=== PATIENT | female | born 1930 | race Caucasian/White ===

== ENCOUNTER 2018-09-19 13:30 | Inpatient (IN) | payer MEDICARE, BC ==
[2018-09-24] MEDS ORDERED: CEFAZOLIN 2 GM/50 ML BAG ONE (06:20)
[2018-09-24] MEDS ORDERED: Heparin 5,000 UNITS/ML VIAL ONE (06:32)
[2018-09-24] MEDS ORDERED: Protamine Sulfate 50 MG/5 ML VIAL ONE (06:32)
[2018-09-24] MEDS ORDERED: Fentanyl 100 MCG/2 ML VIAL ONE (06:49)
[2018-09-24] MEDS ORDERED: Phenylephrine HCL 10 MG/ML VIAL ONE (07:00)
[2018-09-24] MEDS ORDERED: Bupivacaine HCl 0.5%/Epinephrine 1:200,000/PF 30 ml Vial ONE (07:10)
[2018-09-24] MEDS ORDERED: hydrALAZINE 20 MG/ML VIAL ONE (09:02)
[2018-09-24] MEDS ORDERED: Insulin Regular 300 UNITS/3 ML VIAL SC PRN (10:50)
[2018-09-24] MEDS ORDERED: Ondansetron PF 4 MG/2 ML Vial IVP PRN (10:50)
[2018-09-24] MEDS ORDERED: Glimepiride 2 MG TAB PO SCH ×2 (10:50→14:30)
[2018-09-24] MEDS ORDERED: Sodium Chloride 0.9% 1,000 ML IV SCH (10:50)
[2018-09-24] MEDS ORDERED: traMADol HCl 50 MG TAB PO PRN (10:50)
[2018-09-24] MEDS ORDERED: Phenylephrine 10 MG/NS 250 ML 250 ML IVPB PRN (10:50)
[2018-09-24] MEDS ORDERED: Nitroglycerin 50 MG/250 ML BOT 250 ML IVPB PRN (10:50)
[2018-09-24] MEDS ORDERED: Acetaminophen 325 MG TAB PO PRN (10:50)
[2018-09-24] MEDS ORDERED: Promethazine HCl 25 MG/ML VIAL IM PRN (10:50)
[2018-09-24] MEDS ORDERED: Fentanyl 100 MCG/2 ML VIAL SLOW IVP PRN (10:50)
--- NOTE | 2018-09-24 11:43 | OP ---
DATE OF PROCEDURE: 09/24/2018 PREOPERATIVE DIAGNOSIS: Symptomatic right carotid stenosis. POSTOPERATIVE DIAGNOSIS: Symptomatic right carotid stenosis. PROCEDURE: Right carotid endarterectomy with bovine patch angioplasty. SURGEON: Tam Sweeney M.D. ANESTHESIA: General. ESTIMATED BLOOD LOSS: Less than 100. PROCEDURE IN DETAIL: After adequate anesthesia had been obtained, the patient was placed with a shoulder roll and head supported, an ultrasound was performed. The patient was prepped and draped. Incision was made and carried through the platysma. Sternocleidomastoid muscle was rotated laterally and common internal and external carotid arteries were isolated. Hypoglossal nerve was identified and the the arterial branch and passed through its crook was divided with clips, but the nerve otherwise not handled. Vagus nerve was not specifically identified. After 7500 units of heparin were given ACT levels were checked. Clamps were applied, arteriotomy performed, and a 12-Kyr[place] shunt was placed. Endarterectomy was then performed with nice tapering distally. The area was thoroughly irrigated and any loose debris removed. A bovine patch was then used to close the arteriotomy. Prior to completing the suture line the vessels were back flushed and forward flushed and the arteriotomy was again irrigated with normal saline. Flow was then restored up the external and then internal carotid artery and after obtaining good hemostasis and wound was irrigated and closed in layers. SUSY
[2018-09-24 12:45] VITALS: BMI 25.8
[2018-09-24] MEDS ORDERED: Losartan 25 MG TAB PO SCH (14:45)
[2018-09-24] MEDS: Losartan 25 MG TAB PO SCH (14:50)
[2018-09-24] MEDS: CEFAZOLIN 2 GM/50 ML BAG IVPB SCH ×2 (14:51→21:23)
[2018-09-24] MEDS ORDERED: Lidocaine 1% PF 5 ML VIAL ONE (15:08)
[2018-09-24] MEDS ORDERED: Ondansetron PF 4 MG/2 ML Vial ONE (15:08)
[2018-09-24] MEDS ORDERED: PROPOFOL 200 MG/20 ML VIAL ONE (15:08)
[2018-09-24] MEDS ORDERED: Glycopyrrolate 0.2 MG/ML 5 ML SYRINGE ONE (15:08)
[2018-09-24] MEDS ORDERED: Dexamethasone 20 MG/5 ML VIAL ONE (15:08)
[2018-09-24] MEDS ORDERED: ePHEDrine/0.9% NaCl/PF SYRINGE 50 mg/10 ml ONE (15:08)
[2018-09-24] MEDS ORDERED: Heparin 10,000 UNITS/ 10 ML VIAL ONE (15:08)
[2018-09-24] MEDS ORDERED: Atorvastatin Calcium 20 MG TAB PO SCH (21:00)
[2018-09-25] MEDS ORDERED: Levothyroxine Sodium 125 MCG TAB PO SCH (06:00)
[2018-09-25] MEDS ORDERED: Cepastat Lozenges 1 LOZ PO PRN (06:25)
[2018-09-25] MEDS: Losartan 25 MG TAB PO SCH (06:30)
[2018-09-25] MEDS: CEFAZOLIN 2 GM/50 ML BAG IVPB SCH (06:31)
--- NOTE | 2018-09-25 06:35 | DIS ---
HOSPITAL COURSE: The patient was admitted for elective right carotid endarterectomy for symptomatic stenosis. Her postoperative course was remarkable only for slight lip droop on the right and hyperte nsion, requiring IV nitroglycerin. She has some minimal swelling and bruising in the right neck othe rwise and is doing well in anticipation of discharge later today as her blood pressure comes under be tter control with her morning meds.
[2018-09-25 08:41] VITALS: TEMP 98.9
[2018-09-25] MEDS ORDERED: Glimepiride 2 MG TAB PO SCH (09:00)
[2018-09-25] MEDS ORDERED: Amlodipine 5 MG TAB PO PRN (09:00)
== END 2018-09-25 09:25 | disposition home or self-care (01) | DRG 39 ==
LOC: SURG A 09-24 05:53 → CCU 09-24 10:18
PROVIDERS: ADMIT Thoracic Surgery (Cardiothoracic Vascular Surgery); ATTEND Thoracic Surgery (Cardiothoracic Vascular Surgery)
PROC: 03CK0ZZ Extirpation of Matter from Right Internal Carotid Artery, Open Approach (ICD-10-PCS; principal; 2018-09-24)
PROC: 03CM0ZZ Extirpation of Matter from Right External Carotid Artery, Open Approach (ICD-10-PCS; 2018-09-24)
PROC: 03CH0ZZ Extirpation of Matter from Right Common Carotid Artery, Open Approach (ICD-10-PCS; 2018-09-24)
PROC: 03UM0KZ Supplement Right External Carotid Artery with Nonautologous Tissue Substitute, Open Approach (ICD-10-PCS; 2018-09-24)
DX: I65.23 Occlusion and stenosis of bilateral carotid arteries (principal); I10 Essential (primary) hypertension; J02.9 Acute pharyngitis, unspecified; R60.9 Edema, unspecified; E11.9 Type 2 diabetes mellitus without complications; M19.90 Unspecified osteoarthritis, unspecified site; Z85.828 Personal history of other malignant neoplasm of skin; E78.5 Hyperlipidemia, unspecified; Z86.73 Personal history of transient ischemic attack (TIA), and cerebral infarction without residual deficits; E03.9 Hypothyroidism, unspecified
CPT/HCPCS: 36416; J0360; J0670; J1100; J1642; J1644; J2001; J2370; J2405; J2704; J2720; J3010

== ENCOUNTER 2018-09-19 13:43 | Outpatient (CLI) | payer MEDICARE, BC ==
[2018-09-19 14:31] LABS: Hemoglobin 12.5 g/dL (12.0-16.0); Mean Corpuscular HGB CONC 33.3 g/dL (32.0-36.0); Mean Platelet Volume 6.9 fL (7.4-10.4); Platelet Count 238 thou/uL (130-400); RBC Distribution Width 13.6 % (11.5-14.5); Red Blood Cell (RBC) Count 4.02 mill/uL (4.20-5.40); White Blood Cell (WBC) Count 6.1 thou/uL (4.8-10.8)
[2018-09-19 14:49] LABS: Anion Gap 10 mmol/L (10-20); BUN (Urea Nitrogen) 19 mg/dL (9.8-20.1); Calc. Creatinine Clearance 0 mL/min (70-130); Calcium 9.1 mg/dL (7.8-10.44); Carbon Dioxide 26 mmol/L (23-31); Chloride 109 mmol/L (98-107); Estimated GFR-MDRD 43; Glucose 63 mg/dL (83-110); Potassium 4.4 mmol/L (3.5-5.1); Sodium 141 mmol/L (136-145)
--- NOTE | 2018-09-20 07:48 | EKG ---
Test Reason : Blood Pressure : / mmHG Vent. Rate : 052 BPM Atrial Rate : 052 BPM P-R Int : 174 ms QRS Dur : 094 ms QT Int : 518 ms P-R-T Axes : 070 095 020 degrees QTc Int : 481 ms Sinus bradycardia Rightward axis Incomplete right bundle branch block Nonspecific ST abnormality Abnormal ECG No previous ECGs available Confirmed by DR. Bria LUIS ([id number]) on 09/20/2018 7:48:01 AM Referred By: CARLA Confirmed By:DR. Bria LUIS
== END 2018-09-19 13:44 | disposition home or self-care (01) ==
LOC: LABBT 13:43
PROVIDERS: ATTEND Thoracic Surgery (Cardiothoracic Vascular Surgery)
DX: Z01.818 Encounter for other preprocedural examination (principal); G45.9 Transient cerebral ischemic attack, unspecified
CPT/HCPCS: 80048; 85027; 93005; 93010

== ENCOUNTER 2020-01-21 09:36 | Outpatient (CLI) | payer MEDICARE, BC ==
--- NOTE | 2020-01-21 10:24 | RAD ---
Right wrist 4 views: 01/21/2020 COMPARISON: None HISTORY: Fall, trauma, pain FINDINGS: There is chondrocalcinosis in the region of the triangular fibrocartilage complex. There is radiocarpal joint space narrowing. There is degenerative change in the region of the first carpometacarpal joint as well as the first an d second metacarpal phalangeal joints. No displaced fracture or evidence of dislocation is appreciated. If symptoms persist, follow-up in 7-10 days advised. IMPRESSION: Degenerative change. No acute fracture or dislocation seen.
--- NOTE | 2020-01-21 10:31 | RAD ---
XR Hip Lt 2-3 View History: M 25.552. Left hip Comparison: None Findings: Small femoral head/neck ring osteophytes. Mild vascular calcifications. Mild narrowing of the pubic symphysis and SI joints. Phleboliths in the left hemipelvis. Impression: No acute fracture or malalignment.
== END 2020-01-21 09:37 | disposition home or self-care (01) ==
LOC: SCSRAD 09:36
PROVIDERS: ATTEND Family Medicine
DX: M25.552 Pain in left hip (principal); M25.531 Pain in right wrist; M19.031 Primary osteoarthritis, right wrist

== ENCOUNTER 2020-02-18 11:00 | Outpatient (CLI) | payer MEDICARE, BC ==
--- NOTE | 2020-02-18 13:47 | CT ---
CT RIGHT UPPER EXTREMITY WITHOUT CONTRAST: 02/18/20 HISTORY: Wrist pain. Injury. COMPARISON: Radiographs of the wrist 01/21/20. FINDINGS: Radiographically occult intra-articular distal radius fracture. This is a somewhat complex fracture i ncluding a complete fracture of the radial styloid process through the scaphoid fossa laterally as we ll as an impacted fracture along the central aspect of the medial scaphoid fossa. There is also a fra cture of the dorsal cortex with 2 mm dorsal displacement. Chondrocalcinosis of the triangular fibrocartilage and scapholunate ligament. Advanced degenerative disease of the thumb carpometacarpal joint as well as thumb metacarpophalangea l joint. The tip of the hammate and the tubercle fusion are intact. The visualized metacarpals appear to be in tact. IMPRESSION: 1. Intra-articular distal radius fracture, slightly complex, involving both the radial styloid process as well as scaphoid fossa with dorsal impaction and minimal dorsal displacement. 2. 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 3. 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 4. 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 POS: HOME
== END 2020-02-18 11:01 | disposition home or self-care (01) ==
LOC: SCSCT 11:00
PROVIDERS: ATTEND Family Medicine
DX: M25.531 Pain in right wrist (principal); S52.511A Displaced fracture of right radial styloid process, initial encounter for closed fracture; M11.231 Other chondrocalcinosis, right wrist; M18.11 Unilateral primary osteoarthritis of first carpometacarpal joint, right hand; M67.833 Other specified disorders of tendon, right wrist

== ENCOUNTER 2020-03-30 10:44 | Outpatient (CLI) | payer MEDICARE, BC ==
--- NOTE | 2020-03-30 13:02 | RAD ---
THREE VIEWS RIGHT WRIST: COMPARISON: None. HISTORY: Closed fracture of the right wrist. COMPARISON: 01/21/2020. FINDINGS: Three views in the right wrist show no evidence of acute fracture or dislocation. There is mild narr owing of the radiocarpal joint. No soft tissue swelling is seen. Vascular calcifications are presen t. IMPRESSION: No evidence of right wrist fracture. POS: [facility]
== END 2020-03-30 10:45 | disposition home or self-care (01) ==
LOC: SCSRAD 10:44
PROVIDERS: ATTEND Family Medicine
DX: S62.101D Fracture of unspecified carpal bone, right wrist, subsequent encounter for fracture with routine healing (principal)

== ENCOUNTER 2020-04-19 10:42 | Inpatient (IN) | payer MEDICARE, BC, OTHER ==
[2020-04-19 11:19] LABS: #Eosinphils 0.1 thou/uL (0.0-0.7); #Lymphocytes 1.7 thou/uL (1.20-3.40); #Monocytes 0.5 thou/uL (0.11-0.59); #Neutrophils 5.8 thou/uL (1.40-6.50); %Basophils 0.3 % (0.0-1.0); %Eosinophils 1.6 % (0.0-10.0); %Monocytes 6.3 % (0.0-10.0); %Neutrophils 70.8 % (42.0-75.0); Hemoglobin 12.9 g/dL (12.0-16.0); Mean Corpuscular HGB CONC 33.7 g/dL (32.0-36.0); Mean Corpuscular Hemoglobin 32.4 pg (27.0-31.0); Mean Corpuscular Volume 96.2 fL (78.0-98.0); Mean Platelet Volume 7.7 fL (7.4-10.4); Platelet Count 267 thou/uL (130-400); RBC Distribution Width 13.9 % (11.5-14.5); Red Blood Cell (RBC) Count 3.98 mill/uL (4.20-5.40); White Blood Cell (WBC) Count 8.2 thou/uL (4.8-10.8)
[2020-04-19] MEDS ORDERED: Aspirin Chewable 81 MG TAB ONE (11:20)
[2020-04-19 11:31] LABS: ALT (SGPT) 32 U/L (8-55); AST (SGOT) 41 U/L (5-34); Albumin 4.1 g/dL (3.4-4.8); Alkaline Phosphatase 56 U/L (40-110); Anion Gap 15 mmol/L (10-20); BUN (Urea Nitrogen) 27 mg/dL (9.8-20.1); Bilirubin, Total 0.5 mg/dL (0.2-1.2); CK (CPK) 73 U/L (29-168); Calc. Creatinine Clearance 0 mL/min (70-130); Calcium 8.8 mg/dL (7.8-10.44); Carbon Dioxide 21 mmol/L (23-31); Chloride 107 mmol/L (98-107); Estimated GFR-MDRD 35; Globulin 2.6 g/dL (2.4-3.5); Glucose 121 mg/dL (83-110); Potassium 4.5 mmol/L (3.5-5.1); Protein, Total 6.7 g/dL (6.0-8.3); Sodium 138 mmol/L (136-145)
[2020-04-19 11:52] LABS: CKMB 2.1 ng/mL (0-6.6)
[2020-04-19] MEDS ORDERED: Enoxaparin Sodium 80 MG/0.8 ML SYRINGE ONE (12:31)
[2020-04-19] MEDS ORDERED: Diltiazem 125 MG in Sodium Chloride 0.9% 100 ML IVPB SCH (12:45)
[2020-04-19 13:01] LABS: Prothrombin Time 12.8 sec (12.0-14.7)
[2020-04-19 13:02] LABS: PTT 33.6 sec (22.9-36.1)
--- NOTE | 2020-04-19 13:13 | RAD ---
AP CHEST: History: Palpitations. FINDINGS: Lungs appear clear of infiltrate. Mild cardiomegaly. No evidence of vascular congestion or edema. No significant effusion. IMPRESSION: Cardiomegaly. No acute lung process. POS: [facility]
[2020-04-19 14:04] LABS: Bacteria/HPF None Seen HPF (None Seen); Bilirubin Negative (Negative); Blood, Urine Negative (Negative); Clarity Clear (Clear); Glucose, Urine (Dipstick) Normal (Negative); Leukocyte Negative Leu/uL (Negative); Nitrite Negative (Negative); Protein, Urine (Dipstick) 100 mg/dL (Neg-Trace); RBC/HPF None Seen HPF (0-3); Squamous Epithelial 0-3 HPF (0-3); Urobilinogen Normal mg/dL (Less than 2); WBC/HPF 0-3 HPF (0-3)
[2020-04-19 15:01] VITALS: BMI 24.8
[2020-04-19 15:10] LABS: Troponin I 0.044 ng/mL (< 0.028)
[2020-04-19] MEDS ORDERED: Ondansetron ODT 4 MG TAB SL PRN (15:37)
[2020-04-19] MEDS ORDERED: Ondansetron PF 4 MG/2 ML Vial IVP PRN (15:37)
[2020-04-19] MEDS ORDERED: Nitroglycerin 0.4 MG TAB (25 Tab Bottle) PO PRN (17:16)
[2020-04-19] MEDS ORDERED: Acetaminophen 325 MG TAB PO PRN (17:18)
[2020-04-19] MEDS ORDERED: Calcium Carbonate 500 MG ChewTAB PO PRN (17:18)
[2020-04-19] MEDS ORDERED: Insulin Regular 300 UNITS/3 ML VIAL SC PRN (17:25)
[2020-04-19] MEDS ORDERED: Dextrose 5% in Water 1,000 ML IV PRN (17:25)
[2020-04-19] MEDS ORDERED: Dextrose 50% Abboject 50 ML SYRINGE SLOW IVP PRN (17:25)
--- NOTE | 2020-04-19 17:55 | HP ---
PRIMARY CARE PHYSICIAN: Yosi Carballo MD PRIMARY RESIDENTIAL TEAM LEADER: None. CHIEF COMPLAINT: Palpitations with generalized weakness and exertional shortness of breath of 2 days' duration. HISTORY OF PRESENT ILLNESS: The patient is an 89-year-old female with hypertension, presented to the emergency room with above complaints. Over the last 2 to 3 days, the patient developed gradual worsening palpitations along with generalized weakness, exertional fatigue, and dyspnea on [id number] exertion. The palpitations were irregular. She denies any syncope or lightheadedness. No recent immobilization or travel reported. She is compliant with all of her medications including Toprol-XL 50 mg. No recent surgical intervention reported. Due to worsening symptoms, she presented to the emergency room. She denies any cardiac history in the past. In the emergency room, her workup was consistent with atrial fibrillation with rapid ventricular response. She was started on Cardizem drip after a Cardizem bolus. PAST MEDICAL HISTORY: 1. Hypertension. 2. Diabetes mellitus, type 2. 3. Hypothyroidism. 4. Degenerative joint disease. 5. History of skin cancer. 6. History of falls. Most recent fall was one month ago. PAST SURGICAL HISTORY: 1. Colonoscopy. 2. Back surgery in 1967. 3. Appendectomy. 4. Right total hip replacement. ALLERGIES: THE PATIENT DENIES ANY DRUG ALLERGIES. CURRENT HOME MEDICATIONS: 1. Levothyroxine 125 mcg daily. 2. Toprol-XL 50 mg daily. 3. Zocor 40 mg at bedtime. 4. Glimepiride 1 mg daily. 5. Vitamin D3 daily. 6. Aspirin 81 mg daily. The patient has discontinued aspirin recently since she is on ibuprofen. SOCIAL HISTORY: The patient currently lives at home, ambulates with the help of her cane. Her daughter is the primary decision maker. She is full code. No smoking or alcohol reported. FAMILY HISTORY: Father of colon cancer. Mother with hypertension. REVIEW OF SYSTEMS: All other review of systems was reviewed and was found negative. PHYSICAL EXAMINATION: VITAL SIGNS: Temperature 97.5, respirations of 22, pulse of 123, blood pressure of 149/83, O2 saturation of 97% on room air. GENERAL: This is an 89-year-old female, in no apparent distress. HEENT: Head, atraumatic and normocephalic. Sclerae are anicteric. Moist mucous membranes. No oral lesion. NECK: Supple. No JVD. No carotid bruit. LUNGS: Clear to auscultation bilaterally. No wheezing, rales, or rhonchi. HEART: S1 and S2 present. Irregularly irregular. No rubs or gallops. ABDOMEN: Soft and nontender. Bowel sounds present. No rebound or guarding. NEUROLOGIC: Grossly nonfocal. Moves all 4 extremities. PSYCHIATRY: Alert, awake, and oriented x3. SKIN: Warm and dry. LYMPH NODES: No palpable lymph nodes in the neck. PERIPHERAL VASCULAR: Radial pulses palpable bilaterally. MUSCULOSKELETAL: No joint swelling or tenderness. LABORATORY FINDINGS: Creatinine 1.43, BUN 27. Troponin in the indeterminate range. TSH 1.6. WBC 8.2 with hemoglobin 12.9. Urinalysis was negative. EKG by my review showed atrial fibrillation with rapid ventricular response. Chest x-ray by my review was negative for acute findings. IMPRESSION: 1. Generalized weakness, exertional fatigue and palpitations secondary to atrial fibrillation with rapid ventricular response. 2. Mild acute kidney injury on chronic kidney disease, stage 3. 3. Hypertension. 4. Hyperlipidemia. 5. Degenerative joint disease. 6. Diabetes mellitus, type 2. 7. History of falls. Most recent fall was a month ago. 8. Hypothyroidism. PLAN: The patient will be monitored on the telemetry unit. She is currently on Cardizem drip. We will continue Toprol-XL. We will hold losartan due to acute kidney injury. We will try to increase Toprol-XL if her blood pressure permits. We will restart low-dose aspirin. Echocardiogram will be obtained. We will continue 1 mg/kg of Lovenox. The patient and the family understands the risks associated with anticoagulation. Her CHADS2 score is 2. We will consult Cardiology in a.m. We will keep her n.p.o. past midnight. The patient and the family understands the above plan of care. Job ID: [id number]
[2020-04-19] MEDS: Famotidine 20 MG TAB PO SCH (20:45)
[2020-04-19] MEDS: Enoxaparin Sodium 80 MG/0.8 ML SYRINGE SC SCH (20:45)
[2020-04-19] MEDS: Atorvastatin Calcium 20 MG TAB PO SCH (20:45)
[2020-04-19] MEDS ORDERED: Enoxaparin Sodium 80 MG/0.8 ML SYRINGE SC SCH (21:00)
[2020-04-20 04:36] LABS: #Eosinphils 0.2 thou/uL (0.0-0.7); #Lymphocytes 1.8 thou/uL (1.20-3.40); #Monocytes 0.5 thou/uL (0.11-0.59); #Neutrophils 5.3 thou/uL (1.40-6.50); %Basophils 0.5 % (0.0-1.0); %Eosinophils 2.8 % (0.0-10.0); %Lymphocytes 22.3 % (21.0-51.0); %Monocytes 6.4 % (0.0-10.0); Hemoglobin 11.9 g/dL (12.0-16.0); Mean Corpuscular Hemoglobin 32.8 pg (27.0-31.0); Mean Corpuscular Volume 96.5 fL (78.0-98.0); Mean Platelet Volume 7.4 fL (7.4-10.4); Platelet Count 231 thou/uL (130-400); RBC Distribution Width 13.5 % (11.5-14.5); Red Blood Cell (RBC) Count 3.64 mill/uL (4.20-5.40); White Blood Cell (WBC) Count 7.9 thou/uL (4.8-10.8)
[2020-04-20 05:05] LABS: Anion Gap 12 mmol/L (10-20); BUN (Urea Nitrogen) 30 mg/dL (9.8-20.1); Calc. Creatinine Clearance 27 mL/min (70-130); Calcium 8.1 mg/dL (7.8-10.44); Carbon Dioxide 24 mmol/L (23-31); Chloride 110 mmol/L (98-107); Estimated GFR-MDRD 31; Glucose 109 mg/dL (83-110); Potassium 4.2 mmol/L (3.5-5.1); Sodium 142 mmol/L (136-145)
[2020-04-20] MEDS: Levothyroxine Sodium 125 MCG TAB PO SCH (05:28)
[2020-04-20] MEDS: Aspirin 81 mg Enteric Coated Tablet PO SCH (08:06)
[2020-04-20] MEDS: Famotidine 20 MG TAB PO SCH ×2 (08:06→20:19)
[2020-04-20] MEDS ORDERED: Prevnar 13-Val Conj/PF 0.5 ML SYRINGE IM ONE (09:00)
--- NOTE | 2020-04-20 14:24 | CON ---
DATE OF CONSULTATION: REASON FOR CONSULTATION: Atrial fibrillation/flutter. PRIMARY ENVIRONMENTAL ENGINEERING TECHNICIAN: None. HISTORY OF PRESENT ILLNESS: Ms. Guerrero is a very pleasant 89-year-old woman, who recently presented with increased shortness of breath, weakness, fatigue, and lower extremity edema. She was found to be in atrial fibrillation with RVR while in the emergency room. There have been some component suggesting flutter. She was placed on IV Cardizem but had a 6.5-second pause. She was asymptomatic during this time. PAST MEDICAL HISTORY: Diabetes mellitus, hypertension, hypothyroidism, DJD, back surgery, appendectomy, hip replacement. ALLERGIES: NONE. HOME MEDICATIONS: 1. Levothyroxine. 2. Toprol. 3. Zocor. 4. . 5. Vitamin D3. 6. Aspirin. SOCIAL HISTORY: No current tobacco or alcohol use. REVIEW OF SYSTEMS: A 10-point review of systems is reviewed as above, otherwise negative. PHYSICAL EXAMINATION: GENERAL: Patient is a pleasant woman who is in no acute distress. The patient appears their stated age. VITAL SIGNS: Blood pressure 145/91, pulse 109, respirations 20. NEUROLOGIC: The patient is alert and oriented x3 with no focal neurologic deficits. HEENT: Sclerae without icterus. Mouth has moist mucous membranes with normal pallor. NECK: No JVD. Carotid upstroke brisk. No bruits bilaterally. LUNGS: Clear to auscultation with unlabored respirations. BACK: No scoliosis or kyphosis. CARDIAC: Irregularly irregular. ABDOMEN: Soft, nontender, nondistended. No peritoneal signs present. No hepatosplenomegaly. No abnormal striae. EXTREMITIES: 2+ femoral and 2+ dorsalis pedis pulses. No cyanosis, clubbing, or edema. SKIN: No gross abnormalities. PERTINENT LABORATORY DATA: Hemoglobin 11.9, hematocrit 35.2. Creatinine 1.59 with a GFR of 31. Echo pending. IMPRESSION: New onset atrial flutter. RECOMMENDATIONS: May restart low-dose IV Cardizem. Would prefer IV Cardizem to p.o. Cardizem given this 6.5-second pause. This may be an indication of sick sinus syndrome. We will review her echo. May also consider low-dose digoxin, although creatinine clearance is low. There has been also suggestion of underlying atrial flutter. May consult with EP to help with assessment. Job ID: [id number]
--- NOTE | 2020-04-20 14:55 | PDOC.HOSPP ---
- Subjective Encounter Date: 04/20/20 Encounter Time: 09:00 Subjective: no overnight events. This morning, palpiations and dyspnea on exertion mildly improved. has no other complaints - Objective Vital Signs & Weight: Vital Signs (12 hours) Temp Pulse Resp BP Pulse Ox 04/20/20 11:07 98.5 F 109 H 18 145/91 H 98 04/20/20 08:07 123 H 132/90 04/20/20 07:12 97.7 F 117 H 20 100/59 L 94 L 04/20/20 03:21 97.8 F 118 H 16 101/55 L 94 L Weight Admit Weight 153 lb 14.4 oz Weight 153 lb 14.4 oz I&O: 04/19/20 04/20/20 04/21/20 06:59 06:59 06:59 Intake Total 240 Output Total 0 Balance 240 Result Diagrams: 04/20/20 04:16 04/20/20 04:16 Additional Labs: Accuchecks 04/20/20 04/20/20 04/19/20 11:05 06:07 20:34 POC Glucose 183 H 122 H 118 H 04/19/20 16:48 POC Glucose 150 H Hospitalist ROS - Review of Systems Constitutional: denies: chills, sweats Respiratory: reports: SOB with excertion. denies: cough, dry Cardiovascular: reports: palpitations. denies: chest pain, orthopnea, paroxysmal noc. dyspnea, edema Gastrointestinal: denies: nausea, vomiting, abdominal pain - Medication Medications: Active Medications Generic Name Dose Route Start Last Admin Trade Name Freq PRN Reason Stop Dose Admin Aspirin 81 mg 04/20/20 09:00 04/20/20 08:06 Ecotrin PO 81 mg DAILY KARIN Administration Atorvastatin Calcium 20 mg 04/19/20 21:00 04/19/20 20:45 Lipitor PO 20 mg HS KARIN Administration Cholecalciferol 2,000 units 04/20/20 09:00 04/20/20 08:06 Vitamin D3 PO 2,000 units DAILY KARIN Administration Enoxaparin Sodium 70 mg 04/19/20 21:00 04/19/20 20:45 Lovenox SC 70 mg HS KARIN Administration Famotidine 20 mg 04/19/20 21:00 04/20/20 08:06 Pepcid PO 20 mg BID KARIN Administration Levothyroxine Sodium 125 mcg 04/20/20 06:00 04/20/20 05:28 Synthroid PO Not Given 0600 [facility] Metoprolol Succinate 50 mg 04/19/20 21:00 04/20/20 08:07 Toprol Xl PO 50 mg BID KARIN Administration - Exam General Appearance: NAD, awake alert Heart: no murmur, no gallops, no rubs Heart - other findings: irregularly irreguraly, tachycardic Respiratory: CTAB, no wheezes, no rales, no ronchi Gastrointestinal: soft, non-tender, non-distended, normal bowel sounds Extremities: no edema Psychiatric: normal affect, normal behavior, A&O x 3 Hosp A/P - Plan #afib/aflut with RVR -HR in 120s -telemetry showing afib/aflut w/ RVR -pending cardiology eval -continue metoprolol and lovenox #ODESSA -renal function stable -likely prerenal due to dehydration/reduced effective perfusion in context of RVR -once afib/flut better controlled, can start gentle fluids #T2DM -currently well controlled; continue same regimen
[2020-04-20] MEDS ORDERED: Sodium Chloride 0.9% 1,000 ML IV SCH (15:30)
[2020-04-20] MEDS ORDERED: Metoprolol Tartrate 5 MG/5 ML VIAL IVP PRN (16:13)
[2020-04-20] MEDS ORDERED: Amiodarone HCl 150 MG in Dextrose 5% in Water 100 ML IVPB SCH (16:30)
[2020-04-20] MEDS: Amiodarone 450 MG in Dextrose 5% in Water 250 ML IVPB SCH (17:21)
[2020-04-20] MEDS: Atorvastatin Calcium 20 MG TAB PO SCH (20:19)
[2020-04-20] MEDS: Enoxaparin Sodium 80 MG/0.8 ML SYRINGE SC SCH (20:19)
--- NOTE | 2020-04-20 22:26 | CON ---
DATE OF CONSULTATION: 04/20/2020 REASON FOR CONSULTATION: Atrial arrhythmia management. Dr. Tai Bone performed the consultations. HISTORY OF PRESENT ILLNESS: Ms. Guerrero is an 89-year-old female who is reporting generalized weakness with dyspnea on exertion, and shortness of breath x2 days. Her primary care provider is Yosi Carballo. She has no prior cardiac history and had not previously established a talent associate. She reported palpitations where she felt her heart rate was fluttering. She denies any passing out episodes or chest pain. She has been on metoprolol for hypertension. She was found to be in atrial flutter with RVR and started on a Cardizem drip after initial Cardizem bolus. There is moderate rate control with this. However, she had a 6.5 second pause on Cardizem and it was since discontinued. Since then, she has had no further pauses; however, her ventricular rates have ranged between 90 and 150 beats per minute. Of note, she struggles with chronic arthritic pain in especially her left shoulder and her right hip, which has previously been replaced. She also has a history of TIAs and was found to have a 95% right carotid occlusion and underwent CEA approximately 1-1/[address] Sweeney. She denies any history of cardiac arrhythmias prior to this hospitalization. She does not feel that her memory is very strong and her regret is that she is forgetful. She requests that her care be coordinated with her daughter, Wilma. REVIEW OF SYSTEMS: A 12-point review of systems was negative except that listed above in the HPI. The patient had a significant fall earlier this year when she was walking and suddenly fell backwards hitting her head on a rock and required stitches for repair, but no brain bleed was identified. PAST MEDICAL HISTORY: 1. Hypertension. 2. Type 2 diabetes. 3. Hypothyroidism. 4. DJD. 5. Skin cancer. 6. Falls. 7. Total right hip replacement. 8. Appendectomy. ALLERGIES: NO KNOWN DRUG ALLERGIES. HOME MEDICATIONS: 1. Levothyroxine 125 mcg daily. 2. Toprol-XL 50 mg daily. 3. Zocor 40 mg at bedtime. 4. Glimepiride 1 mg daily. 5. Vitamin D3 daily. 6. Aspirin 81 mg daily. 7. Tylenol p.r.n. 8. Ibuprofen p.r.n. SOCIAL HISTORY: Lives at home. Strong family support with her daughters. Denies alcohol, tobacco, or illicit drug use. Ambulates with a cane for assistive support since the time of her hip replacement. FAMILY HISTORY: Father from colon cancer. Mother positive for hypertension. Negative for sudden cardiac or early-onset CAD on either side. OBJECTIVE: VITAL SIGNS: Temperature 98.5, pulse 111, blood pressure 166/98, respirations 18, and oxygen 94% on room air. GENERAL: The patient is alert, oriented. Speech is clear. Affect is appropriate. LUNGS: Her respirations are slightly rapid with an audible expiratory wheeze, although she is in no acute distress at the time of exam. Do not exhibit any rales or rubs, but as mentioned positive for expiratory wheeze. NECK: Supple without jugular venous distention. Normocephalic and atraumatic. Sclerae anicteric. EOMs are intact. Oral mucosa is moist. There is adequate dentition. HEART: Her heart rate is irregularly irregular and rapid. PMI is nondisplaced. ABDOMEN: Soft and nontender without palpable masses. EXTREMITIES: Warm and dry to touch. Well perfused without clubbing, cyanosis, or edema. NEUROLOGIC: Grossly intact and nonfocal. Gait was not assessed. LABORATORY DATA: Hemoglobin 11.9, otherwise hematology unremarkable. Chemistry: Potassium 4.2, creatinine 1.6. Troponin indeterminately elevated likely due to tachycardia followed by Cardiology. Magnesium 2.2, TSH 1.6. Liver enzymes within normal ranges at the high end of normal. IMAGING: Echocardiogram performed today, results pending. Atrial fibrillation is seen since that time with variable ventricular rates between 90 and 130 beats per minute generally. Occasionally RVR up to 150 beats per minute. There is a 6.5 second pause while she was on the diltiazem drip. IMPRESSION: 1. New onset of atrial arrhythmias with rapid ventricular rates, symptomatic with shortness of breath and dyspnea on exertion. 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 3. Right bundle branch block. 4. CHADS-VASc score of 8 (advanced age, female gender, hypertension, diabetes, prior transient ischemic attack, vascular disease, possibly 9, pending echo results). 5. Currently on Lovenox for stroke prophylaxis. PLAN AND RECOMMENDATIONS: Ms. Guerrero is an 89-year-old woman with newly found onset of atrial fibrillation and atrial flutter both. Her atrial flutter appears to be atypical and is not likely cavotricuspid isthmus dependent. This is treated with a diltiazem drip and ultimately resulted in a 6.5 second pause. Since then, her AV pooja blocking medications have been discontinued with the exception of her oral metoprolol, which she has been on chronically. I had an extensive discussion with her regarding treatment options for her atrial fibrillation. Given that she is symptomatic with this, I would recommend expediting a AMOS-guided cardioversion. AMOS to rule out any intracardiac thrombus before proceeding with cardioversion as the duration of her atrial arrhythmias is unknown and she has not chronically been anticoagulated. Her CHADS-VASc score is exceedingly high and oral anticoagulation is indicated. Given her advanced age and her poor kidney function with a creatinine of 1.6, I would recommend Eliquis 2.5 mg b.i.d. long-term and renally dosed Lovenox. If able to proceed with a cardioversion following transesophageal echogram and can restore sinus rhythm, she may benefit from antiarrhythmic therapy to maintain sinus rhythm. Multaq could be a consideration, if her ejection fraction is preserved. Her echocardiogram images have been taken, but the report is not available for review at this time. Final antiarrhythmic medication recommendations will be determined once the echo results are made available. Long-term, I suspect she may require pacing support for this tachy-kimani syndrome, but for now, she prefers a conservative route and I would like to watch a bit more closely following the time of the cardioversion before committing her to a pacemaker. We will attempt to reach her daughter and discuss this as well. Thank you for allowing me to participate in the care of this patient. Job ID: [id number]
[2020-04-21] MEDS: Amiodarone 450 MG in Dextrose 5% in Water 250 ML IVPB SCH ×2 (00:35→18:16)
[2020-04-21 04:47] LABS: #Eosinphils 0.1 thou/uL (0.0-0.7); #Lymphocytes 1.8 thou/uL (1.20-3.40); #Monocytes 0.6 thou/uL (0.11-0.59); %Basophils 0.3 % (0.0-1.0); %Eosinophils 1.7 % (0.0-10.0); %Lymphocytes 23.4 % (21.0-51.0); %Monocytes 7.4 % (0.0-10.0); %Neutrophils 67.1 % (42.0-75.0); Hemoglobin 11.8 g/dL (12.0-16.0); Mean Corpuscular HGB CONC 32.8 g/dL (32.0-36.0); Mean Corpuscular Hemoglobin 31.8 pg (27.0-31.0); Mean Corpuscular Volume 97.1 fL (78.0-98.0); Mean Platelet Volume 7.6 fL (7.4-10.4); Platelet Count 230 thou/uL (130-400); RBC Distribution Width 13.9 % (11.5-14.5); Red Blood Cell (RBC) Count 3.72 mill/uL (4.20-5.40); White Blood Cell (WBC) Count 7.5 thou/uL (4.8-10.8)
[2020-04-21 05:03] LABS: Anion Gap 13 mmol/L (10-20); BUN (Urea Nitrogen) 30 mg/dL (9.8-20.1); Calc. Creatinine Clearance 29 mL/min (70-130); Calcium 8.3 mg/dL (7.8-10.44); Carbon Dioxide 22 mmol/L (23-31); Chloride 107 mmol/L (98-107); Estimated GFR-MDRD 32; Glucose 144 mg/dL (83-110); Sodium 138 mmol/L (136-145)
[2020-04-21] MEDS: Levothyroxine Sodium 125 MCG TAB PO SCH (05:43)
--- NOTE | 2020-04-21 08:06 | PDOC.EP ---
- Subjective Date: 04/21/20 Time: 08:04 Interval History: Patient scheduled for AMOS/CV today. Still feeling SOB and mentally foggy. + wheezing. daughter is bedside - Review of Systems Constitutional: reports: weakness. denies: chills, fever, malaise, sweats Respiratory: reports: shortness of breath, wheezing. denies: cough, sputum Cardiology: reports: light headedness, palpitations. denies: chest pain, heart racing, passing out Gastrointestinal: denies: abdominal pain, constipation, diarrhea - Objective Allergies/Adverse Reactions: Allergies Allergy/AdvReac Type Severity Reaction Status Date / Time No Known Allergies Allergy Verified 04/19/20 15:08 Current Medications Acetaminophen (Tylenol) 650 mg PO Q4H PRN PRN Reason: Headache/Fever/Mild Pain (1-3) Aspirin (Ecotrin) 81 mg PO DAILY [facility] Last Admin: 04/20/20 08:06 Dose: 81 mg Atorvastatin Calcium (Lipitor) 20 mg PO [facility] Last Admin: 04/20/20 20:19 Dose: 20 mg Calcium Carbonate (Tums) 1,000 mg PO Q4H PRN PRN Reason: Heartburn or Indigestion Cholecalciferol (Vitamin D3) 2,000 units PO DAILY [facility] Last Admin: 04/20/20 08:06 Dose: 2,000 units Dextrose/Water (Dextrose 50%) 25 gm SLOW IVP PRN PRN PRN Reason: Hypoglycemia Enoxaparin Sodium (Lovenox) 70 mg SC [facility] Last Admin: 04/20/20 20:19 Dose: 70 mg Famotidine (Pepcid) 20 mg PO BID [facility] Last Admin: 04/20/20 20:19 Dose: 20 mg Glucagon (Glucagon) 1 mg IM PRN PRN PRN Reason: Hypoglycemia Dextrose/Water (D5w) 1,000 mls @ 0 mls/hr IV .Q0M PRN PRN Reason: Hypoglycemia Amiodarone HCl 450 mg/ (Dextrose/Water) 259 mls @ 0 mls/hr IVPB INF [facility]; Protocol Last Admin: 04/21/20 00:35 Dose: 259 mls Insulin Human Regular (Humulin R) 0 units SC .MILD SLIDING SCALE PRN PRN Reason: Mild Correctional Scale Insulin Human Regular (Humulin R) 0 units SC .BEDTIME SLIDING SC PRN PRN Reason: Bedtime Correctional Scale Levothyroxine Sodium (Synthroid) 125 mcg PO 0600 [facility] Last Admin: 04/21/20 05:43 Dose: 125 mcg Metoprolol Succinate (Toprol Xl) 50 mg PO BID [facility] Last Admin: 04/20/20 20:19 Dose: 50 mg Metoprolol Tartrate (Lopressor) 5 mg IVP Q6H PRN PRN Reason: arrhythmia Nitroglycerin (Nitrostat) 0.4 mg PO Q5MIN PRN PRN Reason: Chest Pain Sodium Chloride (Flush - Normal Saline) 10 ml IVF PRN PRN PRN Reason: Saline Flush Sodium Chloride (Flush - Normal Saline) 10 ml IVF PRN PRN PRN Reason: Saline Flush Vital Signs & Weight: Vital Signs Temp Pulse Resp BP Pulse Ox 04/21/20 07:30 97.5 F L 100 14 158/92 H 94 L 04/21/20 03:35 97.9 F 102 H 20 167/103 H 97 Admit Weight 153 lb 14.4 oz Weight 157 lb I/O: I/O 04/20/20 04/21/20 04/22/20 06:59 06:59 06:59 Intake Total 240 910 Output Total 0 300 Balance 240 610 - Quality Measures Condition: Atrial Fibrillation/Flutter (hx or current) (lovenox) - Physical Exam General: alert & oriented x3, no apparent distress, affect appropriate HEENT: mucus membranes moist, normocephaly, EOMI Neck: supple neck, no JVD/HJR, no lymphadenopathy Cardiology: irregularly irregular, tachycardia. negative: bradycardia Lungs: no rales, no rhonchi, wheezes (expiratory) Neurology: cranial nerve 2-12 intact, grossly intact, no lateralizing findings Abdomen: unremarkable, no pulsations/bruits Extremities: dry, warm. negative: clubbing, cyanosis, open sore - Chadsvasc Risk factors Congestive heart failure: 1 Hypertension: 1 Age >75: 2 Diabetes mellitus: 1 Stroke/TIA/thrombo-embolism: 2 Vascular disease: 1 Female: 1 Risk Score: 9 - Labs Result Diagrams: 04/21/20 04:28 04/21/20 04:27 - EKG Interpretation EKG Method: Telemetry EKG shows: Atrial fibrillation (RVR) - Assessment/Plan Assessment/Plan: IMPRESSION: 1. New onset of atrial arrhythmias with rapid ventricular rates, symptomatic with shortness of breath and dyspnea on exertion. 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 3. Right bundle branch block. 4. CHADS-VASc score of 8 (advanced age, female gender, hypertension, diabetes, prior transient ischemic attack, vascular disease, possibly 9, pending echo results). 5. Currently on Lovenox for stroke prophylaxis. 6. Cardiomyopathy Newly discovered reduction in EF or 30-35%. Amiodarone drip was initiated 04/21 in the afternoon. She converted from atrial fibrillation to 2:1 atrial flutter around 1700 on 04/21. Ventricular rates are better controlled but she remains tachycardic, in the low 100 range. Proceed with AMOS/cardioversion later today with web analyst. I agree with amiodarone for antiarrhythmic therapy in the setting of newly discovered cardiomyopathy and atrial fibrillation. Her cardiomyopathy is possibly tachycardia mediated. If she remains in sinus rhythm could recheck her ejection fraction prior to discharge. If it remains severely reduced I would recommend a consideration for a life vest and guideline directed medication therapy. we continue to see tachy-kimani issues and the need for pacing support is seen we could also consider early implant of an ICD to prevent reoperation in the near future. EP will continue to follow.
[2020-04-21] MEDS: Famotidine 20 MG TAB PO SCH (08:33)
[2020-04-21] MEDS: Aspirin 81 mg Enteric Coated Tablet PO SCH (08:57)
--- NOTE | 2020-04-21 12:57 | PRG ---
DATE OF SERVICE: SUBJECTIVE: An 89-year-old female with hypertension and diabetes mellitus type 2, presented 2 days ago with generalized weakness along with exertional shortness of breath. A workup was consistent with new onset atrial fibrillation with rapid ventricular response. She is currently on amiodarone drip. This morning, she was found to have slurriness of speech. Stroke team was activated. CT brain noncontrast was negative. No other focal deficit reported. No chest pain or shortness of breath reported. REVIEW OF SYSTEMS: As discussed above, no nausea, vomiting, diarrhea reported. PHYSICAL EXAMINATION: VITAL SIGNS: Temperature 97.5, pulse rate of 100, respirations of 14, blood pressure of 158/92, and O2 saturation 94% on room air. GENERAL: An 89-year-old female in no apparent distress. LUNGS: Clear to auscultation bilaterally. No wheezing, rales, or rhonchi. HEART: S1 and S2 present. Irregularly irregular. No rubs or gallops. ABDOMEN: Soft, nontender. Bowel sounds present. EXTREMITIES: No edema or calf tenderness. NEUROLOGIC: Grossly nonfocal except for mild expressive aphasia. Power was 5/ 5 in all extremities. [id number] test was normal. Sensation to touch was normal bilaterally. PSYCHIATRIC: Alert, awake, oriented x3. Normal affect. LABORATORY FINDINGS: CBC showed WBC 7.5 with hemoglobin 11.8, platelet 230. Creatinine 1.53, potassium 4.0. Echocardiogram showed left ventricular ejection fraction of 30% to 35% with moderate to severe aortic regurgitation, moderate tricuspid regurgitation. CT scan of the brain noncontrast by my review was negative for acute CVA. IMPRESSION: 1. New onset atrial fibrillation with rapid ventricular response, on amiodarone drip. 2. New onset of slurriness of speech, suspected acute thromboembolic cerebrovascular accident vs TIA. 3. Mild acute kidney injury on chronic kidney disease, stage 3. 4. Sinus pause while on Cardizem drip. 5. Hypertension. 6. Hyperlipidemia. 7. History of falls. 8. Diabetes mellitus type 2. 9. Hypothyroidism. 10. New onset cardiomyopathy with ejection fraction of 30% to 35%. 11. Moderate to severe aortic regurgitation. 12. Moderate tricuspid regurgitation. PLAN: The patient will be transferred to the stroke unit. She will undergo a stroke workup including MRI of the brain and carotid Doppler. Echocardiogram has been done. Neurology will be consulted. We will continue anticoagulation with Lovenox. Cardiology and Electrophysiology are following. We will check fasting lipid profile in a.m. Recheck labs in a.m. The patient and the family understand the plan of care. Job ID: [id number] MTDD
--- NOTE | 2020-04-21 13:00 | CON ---
NEUROLOGY CONSULTATION DATE OF CONSULTATION: 04/21/2020 REASON FOR CONSULTATION: Slurred speech. HISTORY OF PRESENT ILLNESS: Ms. Lucila Guerrero is an 89-year-old female with history significant for hypertension, presented to the emergency room on 04/19/2020 because of generalized weakness, exertional fatigue, dyspnea, and also palpitations. The history is taken from the patient and the daughter. According to the daughter, she has been feeling weak and then she also noted slurred speech, which has been going on for the last 2 to 3 days. She does have carotid endarterectomy last year on the right, and since then, she has tingling and numbness on the right side of the face, which never completely resolved. However, since she noticed the speech is slurred and the patient and the family are concerned about new stroke, neurology was consulted for further evaluation. The patient denies nausea, vomiting, headache , dizziness, chest pain, focal weakness, focal paresthesias, problems with dysphagia, loss of vision, loss of consciousness associated with slurred speech. She does have generalized weakness and palpitations and a workup was consistent with atrial fibrillation with a rapid ventricular response, for which she has been managed by Cardiology and the primary team. REVIEW OF SYSTEMS: All 14 systems were negative except the pertinent positives and negatives mentioned in the HPI. PAST MEDICAL HISTORY: 1. Hypertension. 2. Diabetes. 3. Hypothyroidism. 4. Skin cancer. 5. Degenerative joint disease. PAST SURGICAL HISTORY: 1. Colonoscopy. 2. Appendectomy. ALLERGIES: NO KNOWN DRUG ALLERGIES. HOME MEDICATIONS: 1. Levothyroxine 125 mcg daily. 2. Toprol-XL 50 mg daily. 3. Zocor 40 mg at bedtime. 4. Glipizide 1 mg daily. 5. Vitamin D3 daily. 6. Aspirin 81 mg daily. The patient has discontinued aspirin recently since she is on ibuprofen. SOCIAL HISTORY: The patient lives at home. Ambulates with the help of a cane. Denies smoking, alcohol, or illegal drug use. FAMILY HISTORY: Significant for hypertension and colon cancer. Vital Signs (12 hours) Temp Pulse Resp BP Pulse Ox 04/20/20 11:07 98.5 F 109 H 18 145/91 H 98 04/20/20 08:07 123 H 132/90 04/20/20 07:12 97.7 F 117 H 20 100/59 L 94 L 04/20/20 03:21 97.8 F 118 H 16 101/55 L 94 L Weight Admit Weight 153 lb 14.4 oz Weight 153 lb 14.4 oz I&O: 04/19/20 04/20/20 04/21/20 06:59 06:59 06:59 Intake Total 240 Output Total 0 Balance 240 Result Diagrams: 04/20/20 04:16 04/20/20 04:16 Additional Labs: Accuchecks 04/20/20 04/20/20 04/19/20 11:05 06:07 20:34 POC Glucose 183 H 122 H 118 H 04/19/20 16:48 POC Glucose 150 H Active Medications Generic Name Dose Route Start Last Admin Trade Name Freq PRN Reason Stop Dose Admin Aspirin 81 mg 04/20/20 09:00 04/20/20 08:06 Ecotrin PO 81 mg DAILY KARIN Administration Atorvastatin Calcium 20 mg 04/19/20 21:00 04/19/20 20:45 Lipitor PO 20 mg HS KARIN Administration Cholecalciferol 2,000 units 04/20/20 09:00 04/20/20 08:06 Vitamin D3 PO 2,000 units DAILY KARIN Administration Enoxaparin Sodium 70 mg 04/19/20 21:00 04/19/20 20:45 Lovenox SC 70 mg HS KARIN Administration Famotidine 20 mg 04/19/20 21:00 04/20/20 08:06 Pepcid PO 20 mg BID KARIN Administration Levothyroxine Sodium 125 mcg 04/20/20 06:00 04/20/20 05:28 Synthroid PO Not Given 0600 KARIN Metoprolol Succinate 50 mg 04/19/20 21:00 04/20/20 08:07 Toprol Xl PO 50 mg BID KARIN Administration PHYSICAL EXAMINATION: VITAL SIGNS: Blood pressure 150/80, pulse 80, and respiratory rate 18. CVS: Regular rate and rhythm. CHEST: Clear. ABDOMEN: Soft. NEUROLOGIC: Mental status: The patient is alert and oriented to person, place , and time. Speech is slurred. Fund of knowledge is appropriate. Recent and remote memory intact. Cranial nerves: Pupils round and reactive to light. Face symmetric. Tongue midline. Moves neck in both direction. Hearing seems to be intact. Dysarthria. Motor: Muscle tone and bulk are normal. Moving all 4 extremities equally and symmetrically. Sensory intact. Cerebellar intact. Gait deferred due to the patient's safety reasons. DATA REVIEWED: I reviewed the EKG, which showed atrial fibrillation with rapid ventricular response. I also reviewed labs. ASSESSMENT AND PLAN: Ms. Guerrero is s admitted because of generalized weakness with palpitations secondary to atrial fibrillation with rapid ventricular response consulted for slurred speech to rule out stroke. She does have risk factors for stroke include hypertension, hyperlipidemia, atrial fibrillation, and history of prior stroke. Recommend MRI of the brain to rule out acute intracranial process. Continue aspirin and statin for secondary stroke prevention. 2D echo to rule out cardioembolic source. Telemetry for atrial fibrillation with rapid ventricular response. Cardiology on board. Continue home medications. Permissive control of blood pressure at this time. Strict control of blood glucose. Neuro checks every 4 hours. Continue PT/OT/speech. Continue medical management per primary team. We will continue to follow. Thank you for the consult. Job ID: [id number] MTDD
[2020-04-21 14:01] LABS: SARS-CoV-2 MS2 Positive; SARS-CoV-2 N Gene Negative; SARS-CoV-2 S Gene Negative; SARS-CoV-2 orf1ab Negative
--- NOTE | 2020-04-21 14:19 | MRI ---
MRI BRAIN WITHOUT CONTRAST: INDICATION: CVA. FINDINGS: Motion artifact degrades the study. There is mild cortical volume loss. Mild chronic ischemic white matter change. No evidence of restricted diffusion. A tiny focus of increased signal in the brainstem on the diffus ion weighted images does not show signal loss on the ADC map and is probably artifactual. There is n o other evidence of abnormal signal on the diffusion weighted images. No mass or edema. The intracranial internal carotid arteries, basilar artery, and proximal cerebral arteries show flow voids. Paranasal sinuses appear clear. IMPRESSION: 1. Mild to moderate chronic ischemic white matter change. 2. No evidence of acute infarct. POS: AGW
--- NOTE | 2020-04-21 14:38 | CT ---
NONCONTRAST CT OF THE BRAIN: 04/21/20 INDICATION: Level II stroke alert. Last seen normal at 1500 yesterday with just slurred speech but no other motor or sensory impairment. COMPARISON: None. FINDINGS: There is mild generalized cerebral and cerebellar atrophy. There is mild chronic small vessel white m atter ischemic change. There are nonspecific calcifications within the basal ganglia and the cerebell ar hemispheres bilaterally which may be physiologic. There is no acute infarct, hemorrhage or hydroce phalus. The paranasal sinuses and mastoid air cells are clear. Skull is intact. IMPRESSION: 1. No acute intracranial abnormality. Findings called to Dr. Saleh at11:12 a.m. on 04/21/20 2. Mild generalized cerebral and cerebellar atrophy. 3. Mild chronic small vessel white matter ischemic change. POS: BH
--- NOTE | 2020-04-21 16:37 | EKG ---
Test Reason : Blood Pressure : / mmHG Vent. Rate : 102 BPM Atrial Rate : 125 BPM P-R Int : 000 ms QRS Dur : 106 ms QT Int : 410 ms P-R-T Axes : 000 -30 -17 degrees QTc Int : 534 ms Atrial tachycardia with rapid ventricular response Left axis deviation Incomplete right bundle branch block Prolonged QT Abnormal ECG Confirmed by RORY MOLINA ([id number]) on 04/21/2020 4:37:14 PM Referred By: REJI Confirmed By:RORY MOLINA
--- NOTE | 2020-04-21 17:43 | ULT ---
CAROTID DUPLEX ULTRASOUND: 04/21/20 INDICATION: History of acute CVA. FINDINGS: There is moderate to prominent atherosclerotic irregularity involving the proximal left ICA with mild diffuse atherosclerotic irregularity involving the right ICA and bilateral common carotid arteries. Peak systolic velocity in the right common carotid artery is 42.7 cm/s. Left common carotid artery 27 .3 cm/s. peak systolic velocity in the right ICA was 56.6 cm/s and left ICA 24 cm/s. Right IC/CC ratio was 1.33 and left was 0.88. Antegrade flow was seen in both vertebral arteries. IMPRESSION: No hemodynamically significant stenosis demonstrated. There was slightly diminished antegrade flow s een within the left common carotid artery when compared to the right common carotid artery. Some of t his may be related to variant anatomy; however, a moderately obstructing lesion involving the origin of the left common carotid artery cannot be entirely excluded. Recommend consideration for an MRA of the neck or possibly a CTA of the neck for additional characterization. POS: AGNIESZKA
--- NOTE | 2020-04-21 18:07 | PRG ---
DATE OF SERVICE: 04/21/2020 SUBJECTIVE: Ms. Guerrero today appeared to have slurred speech. This is felt to be a new finding. I discussed this with Dr. Saleh. Julian gareth was called. She had a CT scan and MRI that was negative for stroke. Ms. Guerrero has been on amiodarone IV in addition to beta-oliver therapy with appropriate rate control. OBJECTIVE: VITAL SIGNS: Blood pressure 143/83, pulse 103, respirations 20. LUNGS: Clear to auscultation. HEART: Irregularly irregular. ABDOMEN: Soft, nontender, nondistended. EXTREMITIES: No edema. IMPRESSION: 1. Atrial fibrillation. 2. Cardiomyopathy with LVEF estimated at 30% to 35%. RECOMMENDATIONS: I am pleased that Ms. Guerrero's recent study was negative for CVA. I would try and proceed with rate control. Would increase beta-oliver therapy. We will reassess in a.m. if she continues to have difficulty with rate control, I would then proceed with AMOS cardioversion. Plan would be to proceed with sinus rhythm. Her LVEF will likely improve. Job ID: [id number]
[2020-04-21] MEDS: Insulin Regular 300 UNITS/3 ML VIAL SC PRN (18:16)
[2020-04-21] MEDS ORDERED: Atorvastatin Calcium 40 MG TAB PO SCH (21:00)
[2020-04-21] MEDS: Atorvastatin Calcium 20 MG TAB PO SCH (21:48)
[2020-04-21] MEDS: Enoxaparin Sodium 80 MG/0.8 ML SYRINGE SC SCH (21:48)
[2020-04-22 05:42] LABS: Hemoglobin 11.6 g/dL (12.0-16.0); Platelet Count 235 thou/uL (130-400)
[2020-04-22 06:04] LABS: Anion Gap 13 mmol/L (10-20); BUN (Urea Nitrogen) 36 mg/dL (9.8-20.1); Calc. Creatinine Clearance 23 mL/min (70-130); Calcium 8.6 mg/dL (7.8-10.44); Carbon Dioxide 23 mmol/L (23-31); Cardiac Risk 3.7 (Less than 4.5); Chloride 105 mmol/L (98-107); Cholesterol 132 mg/dl (< 200 Desired); Estimated GFR-MDRD 25; Glucose 147 mg/dL (83-110); HDL Cholesterol 36 mg/dL (>60 Neg Risk); LDL Cholesterol, Calculated 74 mg/dL; Potassium 4.2 mmol/L (3.5-5.1); Sodium 137 mmol/L (136-145); Triglycerides 110 mg/dL (Less than 150)
[2020-04-22] MEDS: Levothyroxine Sodium 125 MCG TAB PO SCH (07:07)
[2020-04-22] MEDS: Famotidine 20 MG TAB PO SCH (09:15)
[2020-04-22] MEDS: Aspirin 81 mg Enteric Coated Tablet PO SCH (09:15)
[2020-04-22] MEDS ORDERED: hydrALAZINE 20 MG/ML VIAL SLOW IVP PRN (11:44)
[2020-04-22] MEDS ORDERED: Losartan 25 MG TAB PO SCH (11:45)
--- NOTE | 2020-04-22 11:57 | PDOC.HOSPP ---
- Subjective Encounter Date: 04/22/20 Subjective: NEUROLOGY PROGRESS NOTE Patient clinically improved . Slurred speech resolved. - Objective Vital Signs & Weight: Vital Signs (12 hours) Temp Pulse Resp BP Pulse Ox 04/22/20 11:35 96.5 F L 57 L 18 197/86 H 97 04/22/20 07:33 97.5 F L 51 L 18 173/79 H 96 04/22/20 04:00 97.8 F 58 L 20 169/71 H 98 04/22/20 00:00 98.3 F 46 L 18 167/74 H 94 L Weight Admit Weight 153 lb 14.4 oz Weight 157 lb I&O: 04/21/20 04/22/20 04/23/20 06:59 06:59 06:59 Intake Total 910 1003.4 Output Total 300 Balance 610 1003.4 Result Diagrams: 04/22/20 05:14 04/22/20 05:14 Additional Labs: Accuchecks 04/22/20 04/22/20 04/21/20 10:27 04:59 19:53 POC Glucose 128 H 152 H 181 H 04/21/20 16:37 POC Glucose 167 H Radiology Reviewed by me: Yes EKG Reviewed by me: Yes Hospitalist ROS - Review of Systems Constitutional: denies: fever, chills, sweats, weakness, malaise, other Eyes: denies: pain, vision change, conjunctivae inflammation, eyelid inflammation, redness, other ENT: denies: ear pain, ear discharge, nose pain, nose discharge, nose congestion , mouth pain, mouth swelling, throat pain, throat swelling, other Cardiovascular: denies: chest pain, palpitations, orthopnea, paroxysmal noc. dyspnea, edema, light headedness, other Gastrointestinal: denies: nausea, vomiting, abdominal pain, diarrhea, constipation, melena, hematochezia, other Genitourinary: denies: dysuria, frequency, incontinence, hematuria, retention, other Musculoskeletal: denies: neck pain, shoulder pain, arm pain, back pain, hand pain, leg pain, foot pain, other Skin: denies: rash, lesions, essie, bruising, other Neurological: denies: weakness, numbness, incoordination, change in speech, confusion, seizures, other - Medication Medications: Active Medications Generic Name Dose Route Start Last Admin Trade Name Freq PRN Reason Stop Dose Admin Aspirin 81 mg 04/20/20 09:00 04/22/20 09:15 Ecotrin PO 81 mg DAILY KARIN Administration Atorvastatin Calcium 20 mg 04/19/20 21:00 04/21/20 21:48 Lipitor PO 20 mg HS KARIN Administration Cholecalciferol 2,000 units 04/20/20 09:00 04/22/20 09:15 Vitamin D3 PO 2,000 units DAILY KARNI Administration Enoxaparin Sodium 70 mg 04/19/20 21:00 04/21/20 21:48 Lovenox SC 70 mg HS KARIN Administration Famotidine 20 mg 04/22/20 09:00 04/22/20 09:15 Pepcid PO 20 mg DAILY KARIN Administration Insulin Human Regular 0 units 04/19/20 17:25 04/21/20 18:16 Humulin R SC 2 unit .MILD SLIDING SCALE PRN Administration Mild Correctional Scale Levothyroxine Sodium 125 mcg 04/20/20 06:00 04/22/20 07:07 Synthroid PO 125 mcg 0600 KARIN Administration Metoprolol Succinate 75 mg 04/21/20 21:00 04/22/20 09:14 Toprol Xl PO Not Given BID KARIN - Exam General Appearance: awake alert Eye: PERRL ENT: normocephalic atraumatic Neck: supple Heart: RRR Respiratory: CTAB Gastrointestinal: soft Extremities: no cyanosis Skin: normal turgor Neurological: no new deficit Musculoskeletal: generalized weakness Psychiatric: normal affect, normal behavior, A&O x 3, oriented to person, oriented to place, oriented to time Hosp A/P (1) TIA (transient ischemic attack) Code(s): G45.9 - TRANSIENT CEREBRAL ISCHEMIC ATTACK, UNSPECIFIED Status: Acute (2) Slurred speech Code(s): R47.81 - SLURRED SPEECH Status: Acute (3) Atrial fibrillation Code(s): I48.91 - UNSPECIFIED ATRIAL FIBRILLATION Status: Acute - Plan plan discussed w/ family, PT/OT, adoption social worker 89 year old with an episode of slurred speech which is now resolved. TIA since she has multiple risk factors including hypertension and atrial fibrillation. MRI Brain reviewed which was negative for acute intracranial process. Carotid dopplers did not reveal significant stenosis. MRA neck recommended for comparison. 2D Echo showed LVED 30-35 %. Cardiology on board. Atrial fibrillation detected. Electrophysiology on board. Lipid panel within range. Continue anticoagulation. Continue aspirin and statin for secondary stroke prevention. Neurochecks every 4 hours. Continue home medications. PT/OT/Speech Strict control of BP and BG. Continue medical management per primary team.
[2020-04-22] MEDS ORDERED: Amlodipine 5 MG TAB PO SCH (13:15)
--- NOTE | 2020-04-22 13:30 | PRG ---
DATE OF SERVICE: 04/22/2020 SUBJECTIVE: Ms. Guerrero is currently doing better. She converted back to sinus rhythm last evening. She has had significant pauses up to 4 seconds noted overnight. She has no current complaints. MRI of the brain was negative for stroke. OBJECTIVE: VITAL SIGNS: Blood pressure 197/86, pulse 51, temperature 97.5. GENERAL: The patient is a pleasant female, in no acute distress, appears stated age. HEAD, EYES, EARS, NOSE AND THROAT: Sclerae without icterus. Mouth: Moist mucous membranes, normal palate. NECK: No jugular venous distention. Carotid upstroke is brisk. No bruits bilaterally. LUNGS: Clear to auscultation. HEART: Regular rate and rhythm, normal S1 and S2. ABDOMEN: Soft, nontender, nondistended. EXTREMITIES: No edema. PERTINENT LABORATORY DATA: Hemoglobin 11.6, hematocrit 35.1. Creatinine 1.89 with a GFR of 25. IMPRESSION: 1. Atrial fibrillation. 2. Sick-sinus syndrome. 3. Cardiomyopathy. RECOMMENDATIONS: 1. Appreciate EPs input. She may need pacemaker. 2. Recommend LifeVest if LVEF remains low. 3. Repeat echo to reassess LVEF after she is back in sinus rhythm. If LVEF is decreased, we then recommend a LifeVest. As far as blood pressure is concerned, would recommend Norvasc. Given her renal insufficiency, hydrochlorothiazide is not indicated. May also avoid Cozaar. May also consider hydralazine. Job ID: [id number]
--- NOTE | 2020-04-22 13:37 | PDOC.EP ---
- Subjective Date: 04/22/20 Time: 17:03 Interval History: Follow-up note for the management of atrial fibrillation cardiomyopathy. Yesterday evening patient was seen to have slurred speech. NIH score was 2. a stroke alert was called and Neurology was consulted. Her slurred speech has since resolved and it was considered TIA activity. This occurred while on therapeutically dosed Lovenox. her cardioversion yesterday was canceled due to her stroke-like behavior. She denies any heart racing, palpitations, chest pain, syncope. She reports shortness of breath, recent slurred speech, & weakness. - Review of Systems Constitutional: reports: weakness. denies: chills, fever, malaise, sweats Respiratory: denies: cough, dry, hemoptysis, shortness of breath, wheezing Cardiology: denies: chest pain, edema, heart racing, light headedness, passing out Gastrointestinal: denies: abdominal pain, constipation, nausea, vomitting - Objective Allergies/Adverse Reactions: Allergies Allergy/AdvReac Type Severity Reaction Status Date / Time No Known Allergies Allergy Verified 04/19/20 15:08 Current Medications Acetaminophen (Tylenol) 650 mg PO Q4H PRN PRN Reason: Headache/Fever/Mild Pain (1-3) Amlodipine Besylate (Norvasc) 5 mg PO DAILY [facility] Amlodipine Besylate (Norvasc) 5 mg PO NOW [facility] Stop: 04/22/20 15:15 Aspirin (Ecotrin) 81 mg PO DAILY [facility] Last Admin: 04/22/20 09:15 Dose: 81 mg Atorvastatin Calcium (Lipitor) 20 mg PO HS [facility] Last Admin: 04/21/20 21:48 Dose: 20 mg Calcium Carbonate (Tums) 1,000 mg PO Q4H PRN PRN Reason: Heartburn or Indigestion Cholecalciferol (Vitamin D3) 2,000 units PO DAILY [facility] Last Admin: 04/22/20 09:15 Dose: 2,000 units Dextrose/Water (Dextrose 50%) 25 gm SLOW IVP PRN PRN PRN Reason: Hypoglycemia Enoxaparin Sodium (Lovenox) 70 mg SC HS [facility] Last Admin: 04/21/20 21:48 Dose: 70 mg Famotidine (Pepcid) 20 mg PO DAILY [facility] Last Admin: 04/22/20 09:15 Dose: 20 mg Glucagon (Glucagon) 1 mg IM PRN PRN PRN Reason: Hypoglycemia Hydralazine HCl (Apresoline) 10 mg SLOW IVP Q4H PRN PRN Reason: SBP GREATER THAN 160 Dextrose/Water (D5w) 1,000 mls @ 0 mls/hr IV .Q0M PRN PRN Reason: Hypoglycemia Insulin Human Regular (Humulin R) 0 units SC .MILD SLIDING SCALE PRN PRN Reason: Mild Correctional Scale Last Admin: 04/21/20 18:16 Dose: 2 unit Insulin Human Regular (Humulin R) 0 units SC .BEDTIME SLIDING SC PRN PRN Reason: Bedtime Correctional Scale Levothyroxine Sodium (Synthroid) 125 mcg PO 0600 [facility] Last Admin: 04/22/20 07:07 Dose: 125 mcg Losartan Potassium (Cozaar) 100 mg PO NOW [facility] Stop: 04/22/20 13:45 Last Admin: 04/22/20 12:42 Dose: 100 mg Losartan Potassium (Cozaar) 100 mg PO DAILY [facility] Metoprolol Succinate (Toprol Xl) 75 mg PO BID [facility] Last Admin: 04/22/20 09:14 Dose: Not Given Metoprolol Tartrate (Lopressor) 5 mg IVP Q6H PRN PRN Reason: arrhythmia Nitroglycerin (Nitrostat) 0.4 mg PO Q5MIN PRN PRN Reason: Chest Pain Sodium Chloride (Flush - Normal Saline) 10 ml IVF PRN PRN PRN Reason: Saline Flush Vital Signs & Weight: Vital Signs Temp Pulse Resp BP Pulse Ox 04/22/20 11:35 96.5 F L 57 L 18 197/86 H 97 04/22/20 07:33 97.5 F L 51 L 18 173/79 H 96 04/22/20 04:00 97.8 F 58 L 20 169/71 H 98 Admit Weight 153 lb 14.4 oz Weight 157 lb I/O: I/O 04/21/20 04/22/20 04/23/20 06:59 06:59 06:59 Intake Total 910 1003.4 Output Total 300 Balance 610 1003.4 - Quality Measures Condition: Atrial Fibrillation/Flutter (hx or current) (lovenox) - Physical Exam General: alert & oriented x3, no apparent distress, speech clear HEENT: mucus membranes moist, normocephaly, EOMI Neck: supple neck, midline trachea, no lymphadenopathy Cardiology: regular rate and rhythm, PMI nondisplaced Lungs: clear to auscultation, no wheeze, rales, rhonchi Neurology: sensory function intact, no lateralizing findings. negative: aphasia Abdomen: active bowel sounds, no pulsations/bruits, no hepatosplenomegaly - Chadsvasc Risk factors Congestive heart failure: 1 Hypertension: 1 Age >75: 2 Diabetes mellitus: 1 Stroke/TIA/thrombo-embolism: 2 Vascular disease: 1 Female: 1 Risk Score: 9 - Labs Result Diagrams: 04/22/20 05:14 04/22/20 05:14 - EKG Interpretation EKG Method: Telemetry EKG shows: Sinus rhythm, Sinus bradycardia - Assessment/Plan Assessment/Plan: IMPRESSION: 1. New onset of atrial arrhythmias with rapid ventricular rates, symptomatic with shortness of breath and dyspnea on exertion. 2. Tachy-kimani syndrome -initially with pauses during atrial flutter with IV dilt and PO metop in her system, then while in SR with amio gtt stopped >12hrs prior 3. Right bundle branch block. 4. CHADS-VASc score of 9 (advanced age, female gender, hypertension, diabetes, prior transient ischemic attack, vascular disease, possibly 9, cardiomyopathy). 5. Currently on Lovenox for stroke prophylaxis. 6. Cardiomyopathy 7. TIA 8. Moderate-severe aortic regurgitation 9. Hypertension Ms. Guerrero underwent stroke evaluation due to slurred speech yesterday. Neuro now following and considering this repeat TIA activity. This occurred while on full dose lovenox. salvage determiner she will require NOAC therapy. She was given IV amio bolus then amiodarone gtt for approx 24 hrs before she chemically converted to sinus rhythm/bradycardia on 04/21 around 1999. She has maintained SR since then but started having pauses 3-3.5 seconds in duration around 0900 , which shows underlying conduction disease. She would likely benefit from pacemaker support. Her EF on echo was 30-35%, though her AF RVR was likely a contributing factor. Recheck her EF, limited echo. If it remains severely reduced despite being in SR, we can consider PPM/ICD implant if patient is interested in ICD therapy. Otherwise a PPM will be adequate. Her AV pooja blocking medications have been discontinued. I will await echo reports and plan for device implant Declan.
--- NOTE | 2020-04-22 14:43 | PDOC.HOSPP ---
- Subjective Encounter Date: 04/22/20 Encounter Time: 12:30 Subjective: Patient seen and examined for Afib. Converted to SR. No new complaints. No overnight events - Objective Vital Signs & Weight: Vital Signs (12 hours) Temp Pulse Resp BP BP Pulse Ox 04/22/20 13:44 57 L 157/68 H 04/22/20 11:35 96.5 F L 57 L 18 197/86 H 97 04/22/20 07:33 97.5 F L 51 L 18 173/79 H 96 04/22/20 04:00 97.8 F 58 L 20 169/71 H 98 Weight Admit Weight 153 lb 14.4 oz Weight 157 lb I&O: 04/21/20 04/22/20 04/23/20 06:59 06:59 06:59 Intake Total 910 1003.4 240 Output Total 300 250 Balance 610 1003.4 -10 Result Diagrams: 04/22/20 05:14 04/22/20 05:14 Additional Labs: Accuchecks 04/22/20 04/22/20 04/21/20 10:27 04:59 19:53 POC Glucose 128 H 152 H 181 H 04/21/20 16:37 POC Glucose 167 H EKG Reviewed by me: Yes (Tele SR) Hospitalist ROS - Review of Systems Respiratory: denies: cough, dry, shortness of breath, hemoptysis, SOB with excertion, pleuritic pain, sputum, wheezing, other Cardiovascular: denies: chest pain, palpitations, orthopnea, paroxysmal noc. dyspnea, edema, light headedness, other - Medication Medications: Active Medications Generic Name Dose Route Start Last Admin Trade Name Luis Manuel PRN Reason Stop Dose Admin Amlodipine Besylate 5 mg 04/22/20 13:15 04/22/20 13:44 Norvasc PO 04/22/20 15:15 5 mg NOW KARIN Administration Aspirin 81 mg 04/20/20 09:00 04/22/20 09:15 Ecotrin PO 81 mg DAILY KARIN Administration Atorvastatin Calcium 20 mg 04/19/20 21:00 04/21/20 21:48 Lipitor PO 20 mg HS KARIN Administration Cholecalciferol 2,000 units 04/20/20 09:00 04/22/20 09:15 Vitamin D3 PO 2,000 units DAILY KARIN Administration Enoxaparin Sodium 70 mg 04/19/20 21:00 04/21/20 21:48 Lovenox SC 70 mg HS KARIN Administration Famotidine 20 mg 04/22/20 09:00 04/22/20 09:15 Pepcid PO 20 mg DAILY KARIN Administration Insulin Human Regular 0 units 04/19/20 17:25 04/21/20 18:16 Humulin R SC 2 unit .MILD SLIDING SCALE PRN Administration Mild Correctional Scale Levothyroxine Sodium 125 mcg 04/20/20 06:00 04/22/20 07:07 Synthroid PO 125 mcg 0600 KARIN Administration Metoprolol Succinate 75 mg 04/21/20 21:00 04/22/20 09:14 Toprol Xl PO Not Given BID KARIN - Exam General Appearance: NAD Heart: RRR, no gallops Respiratory: no rales, no ronchi Gastrointestinal: non-tender, non-distended, normal bowel sounds Extremities: no cyanosis, no clubbing Neurological: no new deficit Hosp A/P - Plan DVT proph w/SCDs 1. New onset atrial fibrillation with rapid ventricular response, s/p amiodarone drip. On full dose Lovenox since admission 2. 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 4. Tachy Troy syndrome 5. Hypertension. 6. Hyperlipidemia. 7. History of falls. 8. Diabetes mellitus type 2. 9. Hypothyroidism. 10. New onset cardiomyopathy with ejection fraction of 30% to 35%. 11. Moderate to severe aortic regurgitation. 12. Moderate tricuspid regurgitation. PLAN: Repeat Echo today Amlodipine added Cont Aspirin with Anticoagulation Cardiology and EP following Cont to monitor AM labs Not on ACEI/ARB/Aldactone due to CKD
--- NOTE | 2020-04-22 15:45 | EKG ---
Test Reason : Blood Pressure : / mmHG Vent. Rate : 049 BPM Atrial Rate : 049 BPM P-R Int : 180 ms QRS Dur : 102 ms QT Int : 574 ms P-R-T Axes : 083 -43 -40 degrees QTc Int : 518 ms Marked sinus bradycardia Left axis deviation Incomplete right bundle branch block Nonspecific ST and T wave abnormality Prolonged QT Abnormal ECG Confirmed by RORY MOLINA ([id number]) on 04/22/2020 3:44:54 PM Referred By: JESSENIA Confirmed By:RORY MOLINA
[2020-04-22] MEDS: Insulin Regular 300 UNITS/3 ML VIAL SC PRN (18:41)
[2020-04-22] MEDS: Atorvastatin Calcium 20 MG TAB PO SCH (20:44)
[2020-04-22] MEDS: Enoxaparin Sodium 80 MG/0.8 ML SYRINGE SC SCH (20:44)
[2020-04-23 01:09] LABS: #Eosinphils 0.2 thou/uL (0.0-0.7); #Lymphocytes 1.4 thou/uL (1.20-3.40); #Monocytes 0.6 thou/uL (0.11-0.59); #Neutrophils 6.2 thou/uL (1.40-6.50); %Basophils 0.6 % (0.0-1.0); %Eosinophils 2.1 % (0.0-10.0); %Lymphocytes 16.9 % (21.0-51.0); %Monocytes 6.9 % (0.0-10.0); %Neutrophils 73.6 % (42.0-75.0); Hemoglobin 11.1 g/dL (12.0-16.0); Mean Corpuscular HGB CONC 34.1 g/dL (32.0-36.0); Mean Corpuscular Hemoglobin 32.5 pg (27.0-31.0); Mean Corpuscular Volume 95.1 fL (78.0-98.0); Mean Platelet Volume 7.5 fL (7.4-10.4); Platelet Count 201 thou/uL (130-400); RBC Distribution Width 14.3 % (11.5-14.5); Red Blood Cell (RBC) Count 3.41 mill/uL (4.20-5.40); White Blood Cell (WBC) Count 8.4 thou/uL (4.8-10.8)
[2020-04-23 01:39] LABS: Anion Gap 11 mmol/L (10-20); BUN (Urea Nitrogen) 34 mg/dL (9.8-20.1); Calc. Creatinine Clearance 24 mL/min (70-130); Calcium 8.5 mg/dL (7.8-10.44); Carbon Dioxide 26 mmol/L (23-31); Chloride 107 mmol/L (98-107); Estimated GFR-MDRD 26; Glucose 105 mg/dL (83-110); Magnesium 2.2 mg/dL (1.6-2.6); Potassium 3.8 mmol/L (3.5-5.1); Sodium 140 mmol/L (136-145)
[2020-04-23] MEDS: Levothyroxine Sodium 125 MCG TAB PO SCH (05:44)
[2020-04-23] MEDS ORDERED: Losartan 25 MG TAB PO SCH ×2 (09:00)
[2020-04-23] MEDS: Amlodipine 5 MG TAB PO SCH (09:08)
[2020-04-23] MEDS: Famotidine 20 MG TAB PO SCH (09:08)
[2020-04-23] MEDS: Aspirin 81 mg Enteric Coated Tablet PO SCH (09:08)
--- NOTE | 2020-04-23 11:31 | PDOC.HOSPP ---
- Subjective Encounter Date: 04/23/20 Subjective: NEUROLOGY PROGRESS NOTE Slurred speech resolved yesterday . She is currently at her baseline. She was seen by electrophysiology for atrial fibrillation since TIA occurred on full dose of Lovenox. Repeat echo completed. Awaiting electrophysiology input about possible device placement. - Objective Vital Signs & Weight: Vital Signs (12 hours) Temp Pulse Resp BP BP Pulse Ox 04/23/20 08:00 97.6 F 93 18 134/66 96 04/23/20 05:50 180/77 H 04/23/20 04:05 97.8 F 60 20 191/83 H 98 04/22/20 23:50 98.3 F 57 L 20 155/66 H 98 Weight Admit Weight 153 lb 14.4 oz Weight 157 lb I&O: 04/22/20 04/23/20 04/24/20 06:59 06:59 06:59 Intake Total 1003.4 660 240 Output Total 900 Balance 1003.4 -240 240 Result Diagrams: 04/23/20 01:02 04/23/20 01:02 Additional Labs: Accuchecks 04/23/20 04/23/20 04/22/20 10:46 04:24 22:05 POC Glucose 137 H 113 H 131 H 04/22/20 17:05 POC Glucose 175 H Radiology Reviewed by me: Yes EKG Reviewed by me: Yes Hospitalist ROS - Review of Systems Constitutional: denies: fever, chills, sweats, weakness, malaise, other Eyes: denies: pain, vision change, conjunctivae inflammation, eyelid inflammation, redness, other ENT: denies: ear pain, ear discharge, nose pain, nose discharge, nose congestion , mouth pain, mouth swelling, throat pain, throat swelling, other Respiratory: denies: cough, dry, shortness of breath, hemoptysis, SOB with excertion, pleuritic pain, sputum, wheezing, other Cardiovascular: denies: chest pain, palpitations, orthopnea, paroxysmal noc. dyspnea, edema, light headedness, other Gastrointestinal: denies: nausea, vomiting, abdominal pain, diarrhea, constipation, melena, hematochezia, other Genitourinary: denies: dysuria, frequency, incontinence, hematuria, retention, other Musculoskeletal: denies: neck pain, shoulder pain, arm pain, back pain, hand pain, leg pain, foot pain, other Skin: denies: rash, lesions, essie, bruising, other Neurological: denies: weakness, numbness, incoordination, change in speech, confusion, seizures, other - Medication Medications: Active Medications Generic Name Dose Route Start Last Admin Trade Name Freq PRN Reason Stop Dose Admin Amlodipine Besylate 5 mg 04/23/20 09:00 04/23/20 09:08 Norvasc PO 5 mg DAILY KARIN Administration Aspirin 81 mg 04/20/20 09:00 04/23/20 09:08 Ecotrin PO 81 mg DAILY KARIN Administration Atorvastatin Calcium 20 mg 04/19/20 21:00 04/22/20 20:44 Lipitor PO 20 mg HS [facility] Administration Cholecalciferol 2,000 units 04/20/20 09:00 04/23/20 09:08 Vitamin D3 PO 2,000 units DAILY KARIN Administration Enoxaparin Sodium 70 mg 04/19/20 21:00 04/22/20 20:44 Lovenox SC 70 mg HS [facility] Administration Famotidine 20 mg 04/22/20 09:00 04/23/20 09:08 Pepcid PO 20 mg DAILY KARIN Administration Hydralazine HCl 10 mg 04/22/20 11:44 04/22/20 15:40 Apresoline SLOW IVP 10 mg Q4H PRN Administration SBP GREATER THAN 160 Insulin Human Regular 0 units 04/19/20 17:25 04/22/20 18:41 Humulin R SC 2 unit .MILD SLIDING SCALE PRN Administration Mild Correctional Scale Levothyroxine Sodium 125 mcg 04/20/20 06:00 04/23/20 05:44 Synthroid PO 125 mcg 0600 [facility] Administration Metoprolol Succinate 75 mg 04/21/20 21:00 04/23/20 06:04 Toprol Xl PO 75 mg BID KARIN Administration - Exam General Appearance: awake alert Eye: PERRL ENT: normocephalic atraumatic Neck: supple Heart: RRR Respiratory: CTAB Gastrointestinal: soft Extremities: no cyanosis Skin: normal turgor Neurological: cranial nerve grossly intact, normal sensation to touch, no weakness, no focal deficits, no new deficit Musculoskeletal: normal tone, normal strength, no muscle wasting Psychiatric: normal affect, normal behavior, A&O x 3, oriented to person, oriented to place, oriented to time Hosp A/P (1) TIA (transient ischemic attack) Code(s): G45.9 - TRANSIENT CEREBRAL ISCHEMIC ATTACK, UNSPECIFIED Status: Acute (2) Slurred speech Code(s): R47.81 - SLURRED SPEECH Status: Acute (3) Atrial fibrillation Code(s): I48.91 - UNSPECIFIED ATRIAL FIBRILLATION Status: Acute - Plan PT/OT, DVT proph w/lovenox 89 year old with an episode of slurred speech which is now resolved. TIA since she has multiple risk factors including hypertension and atrial fibrillation. She was seen by electrophysiology for atrial fibrillation since TIA occurred on full dose of Lovenox. Repeat echo completed. Results noted. Awaiting electrophysiology input about possible device placement. MRI Brain reviewed which was negative for acute intracranial process. Carotid dopplers did not reveal significant stenosis. MRA neck recommended for comparison. Lipid panel within range. Continue aspirin and statin for secondary stroke prevention. Neurochecks every 4 hours. Continue home medications. PT/OT/Speech Strict control of BP and BG. Continue medical management per primary team. Plan discussed with the patient, daughter and the stroke unit team during MDR rounds.
--- NOTE | 2020-04-23 13:45 | PDOC.HOSPP ---
- Subjective Encounter Date: 04/23/20 Encounter Time: 07:20 Subjective: Pt seen for followup re: gallo. fib with RVR. No complaints today. - Objective Vital Signs & Weight: Vital Signs (12 hours) Temp Pulse Resp BP BP Pulse Ox 04/23/20 11:46 97.4 F L 98 16 141/79 H 95 04/23/20 08:00 97.6 F 93 18 134/66 96 04/23/20 05:50 180/77 H 04/23/20 04:05 97.8 F 60 20 191/83 H 98 Weight Admit Weight 153 lb 14.4 oz Weight 157 lb I&O: 04/22/20 04/23/20 04/24/20 06:59 06:59 06:59 Intake Total 1003.4 660 240 Output Total 900 Balance 1003.4 -240 240 Result Diagrams: 04/23/20 01:02 04/23/20 01:02 Additional Labs: Accuchecks 04/23/20 04/23/20 04/22/20 10:46 04:24 22:05 POC Glucose 137 H 113 H 131 H 04/22/20 17:05 POC Glucose 175 H labs and MARs reviewed by [place] Hospitalist ROS - Review of Systems Cardiovascular: denies: chest pain, palpitations, orthopnea, paroxysmal noc. dyspnea, edema, light headedness Gastrointestinal: denies: nausea, vomiting, abdominal pain, diarrhea, constipation, melena, hematochezia Neurological: denies: weakness, numbness, incoordination, change in speech, confusion, seizures - Medication Medications: Active Medications Generic Name Dose Route Start Last Admin Trade Name Luis Manuel PRN Reason Stop Dose Admin Amlodipine Besylate 5 mg 04/23/20 09:00 04/23/20 09:08 Norvasc PO 5 mg DAILY KARIN Administration Aspirin 81 mg 04/20/20 09:00 04/23/20 09:08 Ecotrin PO 81 mg DAILY KARIN Administration Atorvastatin Calcium 20 mg 04/19/20 21:00 04/22/20 20:44 Lipitor PO 20 mg HS KARIN Administration Cholecalciferol 2,000 units 04/20/20 09:00 04/23/20 09:08 Vitamin D3 PO 2,000 units DAILY KARIN Administration Enoxaparin Sodium 70 mg 04/19/20 21:00 06/10/20 20:44 Lovenox SC 70 mg HS KARIN Administration Famotidine 20 mg 04/22/20 09:00 04/23/20 09:08 Pepcid PO 20 mg DAILY KARIN Administration Hydralazine HCl 10 mg 04/22/20 11:44 04/22/20 15:40 Apresoline SLOW IVP 10 mg Q4H PRN Administration SBP GREATER THAN 160 Insulin Human Regular 0 units 04/19/20 17:25 04/22/20 18:41 Humulin R SC 2 unit .MILD SLIDING SCALE PRN Administration Mild Correctional Scale Levothyroxine Sodium 125 mcg 04/20/20 06:00 04/23/20 05:44 Synthroid PO 125 mcg 0600 KARIN Administration Metoprolol Succinate 75 mg 04/21/20 21:00 04/23/20 06:04 Toprol Xl PO 75 mg BID KARIN Administration - Exam General Appearance: awake alert Eye: anicteric sclera ENT: moist mucosa Neck: supple Heart: RRR, no rubs Respiratory: CTAB, no rales Gastrointestinal: soft, non-tender Extremities: no cyanosis Psychiatric: normal affect, normal behavior Hosp A/P - Plan ASSESSMENT: 1. New onset atrial fibrillation with rapid ventricular response, now in sinus rhythm 2. TIA on 04/21 - resolved 3. Hyperlipidemia. 4. History of falls. 5. Diabetes mellitus type 2.3. 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 Tachy Troy syndrome 7. Hypertension. 8. Hypothyroidism. 9. 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 10. Moderate to severe aortic regurgitation. 11. Moderate tricuspid regurgitation. PLAN: Repeat Echo showed EF 40-45% (? underestimated on previous echo due to tachycardia). Improved blood pressure control. Cont Aspirin and Lovenox Cardiology and EP following Continue to monitor Creatinine improved slightly to 1.81. Not on ACEI/ARB/Aldactone due to CKD
--- NOTE | 2020-04-23 16:10 | PRG ---
DATE OF SERVICE: 04/23/2020 SUBJECTIVE: Ms. Guerrero is currently doing well. No current complaints. OBJECTIVE: VITAL SIGNS: Blood pressure 141/79, pulse 90, temperature 97.4. LUNGS: Clear to auscultation. HEART: Regular rate and rhythm. ABDOMEN: Soft, nontender, nondistended. EXTREMITIES: No edema. IMPRESSION: 1. Sick sinus syndrome. 2. Atrial fibrillation. RECOMMENDATIONS: 1. Discontinue Lovenox. 2. Pacemaker in a.m. 3. The patient is not felt to be an appropriate candidate for flecainide. May consider propafenone. We will discuss with EP. Job ID: [id number]
--- NOTE | 2020-04-23 16:36 | PDOC.EP ---
- Subjective Date: 04/23/20 Time: 08:00 Interval History: follow-up for tachy-kimani syndrome, newly discovered cardiomyopathy and sick sinus syndrome. Her daughter is bedside during this evaluation. she feels tired today and has not gotten good rest. She is not having any additional slurred speech or focal deficits. she denies any heart racing, palpitations, dizziness, near syncopal episodes, or chest pain. She does report weakness low energy levels and shortness of breath - Objective Allergies/Adverse Reactions: Allergies Allergy/AdvReac Type Severity Reaction Status Date / Time No Known Allergies Allergy Verified 04/19/20 15:08 Current Medications Acetaminophen (Tylenol) 650 mg PO Q4H PRN PRN Reason: Headache/Fever/Mild Pain (1-3) Amlodipine Besylate (Norvasc) 5 mg PO DAILY [facility] Last Admin: 04/23/20 09:08 Dose: 5 mg Aspirin (Ecotrin) 81 mg PO DAILY [facility] Last Admin: 04/23/20 09:08 Dose: 81 mg Atorvastatin Calcium (Lipitor) 20 mg PO HS [facility] Last Admin: 04/22/20 20:44 Dose: 20 mg Calcium Carbonate (Tums) 1,000 mg PO Q4H PRN PRN Reason: Heartburn or Indigestion Cholecalciferol (Vitamin D3) 2,000 units PO DAILY [facility] Last Admin: 04/23/20 09:08 Dose: 2,000 units Dextrose/Water (Dextrose 50%) 25 gm SLOW IVP PRN PRN PRN Reason: Hypoglycemia Enoxaparin Sodium (Lovenox) 70 mg SC ONE [facility] Famotidine (Pepcid) 20 mg PO DAILY [facility] Last Admin: 04/23/20 09:08 Dose: 20 mg Glucagon (Glucagon) 1 mg IM PRN PRN PRN Reason: Hypoglycemia Hydralazine HCl (Apresoline) 10 mg SLOW IVP Q4H PRN PRN Reason: SBP GREATER THAN 160 Last Admin: 04/22/20 15:40 Dose: 10 mg Dextrose/Water (D5w) 1,000 mls @ 0 mls/hr IV .Q0M PRN PRN Reason: Hypoglycemia Insulin Human Regular (Humulin R) 0 units SC .MILD SLIDING SCALE PRN PRN Reason: Mild Correctional Scale Last Admin: 04/22/20 18:41 Dose: 2 unit Insulin Human Regular (Humulin R) 0 units SC .BEDTIME SLIDING SC PRN PRN Reason: Bedtime Correctional Scale Levothyroxine Sodium (Synthroid) 125 mcg PO 0600 [facility] Last Admin: 04/23/20 05:44 Dose: 125 mcg Metoprolol Succinate (Toprol Xl) 75 mg PO BID [facility] Last Admin: 04/23/20 06:04 Dose: 75 mg Metoprolol Tartrate (Lopressor) 5 mg IVP Q6H PRN PRN Reason: HR>130 Nitroglycerin (Nitrostat) 0.4 mg PO Q5MIN PRN PRN Reason: Chest Pain Sodium Chloride (Flush - Normal Saline) 10 ml IVF PRN PRN PRN Reason: Saline Flush Vital Signs & Weight: Vital Signs Temp Pulse Pulse Pulse Resp BP BP 04/23/20 15:52 97.4 F L 97 16 04/23/20 14:38 93 112 H 121/57 L 147/69 H 04/23/20 11:46 97.4 F L 98 16 04/23/20 08:00 97.6 F 93 18 04/23/20 05:50 BP BP Pulse Ox 04/23/20 15:52 147/69 H 96 04/23/20 14:38 04/23/20 11:46 141/79 H 95 04/23/20 08:00 134/66 96 04/23/20 05:50 180/77 H Admit Weight 153 lb 14.4 oz Weight 157 lb I/O: I/O 04/22/20 04/23/20 04/24/20 06:59 06:59 06:59 Intake Total 1003.4 660 240 Output Total 900 Balance 1003.4 -240 240 - Quality Measures Condition: Atrial Fibrillation/Flutter (hx or current) (lovenox) - Physical Exam General: alert & oriented x3, appears well, no apparent distress, speech clear, affect appropriate HEENT: mucus membranes moist, normocephaly Neck: supple neck, no JVD/HJR, no lymphadenopathy Cardiology: PMI nondisplaced, irregularly irregular Lungs: clear to auscultation, no wheeze, rales, rhonchi Neurology: cranial nerve 2-12 intact, no lateralizing findings Abdomen: no pulsations/bruits, HJR negative Extremities: dry, strong pulses, warm - Chadsvasc Risk factors Congestive heart failure: 1 Hypertension: 1 Age >75: 2 Age 65-74: 1 Diabetes mellitus: 1 Stroke/TIA/thrombo-embolism: 2 Vascular disease: 1 Female: 1 Risk Score: 10 - Labs Result Diagrams: 04/23/20 01:02 04/23/20 01:02 - EKG Interpretation EKG Method: Telemetry EKG shows: Atrial fibrillation - Assessment/Plan Assessment/Plan: IMPRESSION: 1. New onset of atrial arrhythmias with rapid ventricular rates, symptomatic with shortness of breath and dyspnea on exertion. 2. Tachy-kimani syndrome -initially with pauses during atrial flutter with IV dilt and PO metop in her system, then while in SR with amio gtt stopped >12hrs prior 3. Right bundle branch block. 4. CHADS-VASc score of 9 (advanced age, female gender, hypertension, diabetes, prior transient ischemic attack, vascular disease, possibly 9, cardiomyopathy). 5. Currently on Lovenox for stroke prophylaxis. 6. Cardiomyopathy 7. TIA 8. Moderate-severe aortic regurgitation 9. Hypertension converted back to atrial fibrillation this morning but with improved ventricular rates between 80 and 110 beats per minute. Repeat echocardiogram on 04/22/2020 shows an ejection fraction partially recovered at 40-45%. given her tachy-kimani syndrome and also evidence of sinus node dysfunction with pauses greater than 3 seconds seen on telemetry I recommend she undergo pacemaker placement. She has congestive heart failure symptoms while in atrial fibrillation with RVR and had significant pauses when this was treated with medications. She will require pacing support to treat her atrial fibrillation. seen her ejection fraction has recovered some she is no longer a candidate for ICD does not require LifeVest. I discussed pacemaker implant the patient is willing to proceed. Risks benefits and alternatives were discussed her daughter was involved in this decision. NPO after midnight labs are ordered for the morning. Patient and her daughter both verbalized consent after our discussion this morning. She is scheduled for 8:00 a.m. tomorrow
[2020-04-23] MEDS ORDERED: Enoxaparin Sodium 80 MG/0.8 ML SYRINGE SC SCH (17:30)
[2020-04-23] MEDS: Atorvastatin Calcium 20 MG TAB PO SCH (21:09)
[2020-04-24] MEDS: Levothyroxine Sodium 125 MCG TAB PO SCH (05:15)
[2020-04-24 06:14] LABS: #Eosinphils 0.2 thou/uL (0.0-0.7); #Lymphocytes 1.3 thou/uL (1.20-3.40); #Monocytes 0.7 thou/uL (0.11-0.59); #Neutrophils 4.3 thou/uL (1.40-6.50); %Basophils 0.3 % (0.0-1.0); %Eosinophils 3.6 % (0.0-10.0); %Lymphocytes 20.4 % (21.0-51.0); %Monocytes 10.1 % (0.0-10.0); %Neutrophils 65.5 % (42.0-75.0); Hemoglobin 11.4 g/dL (12.0-16.0); Mean Corpuscular Hemoglobin 31.7 pg (27.0-31.0); Mean Corpuscular Volume 96.1 fL (78.0-98.0); Mean Platelet Volume 7.4 fL (7.4-10.4); Platelet Count 224 thou/uL (130-400); RBC Distribution Width 14.4 % (11.5-14.5); Red Blood Cell (RBC) Count 3.59 mill/uL (4.20-5.40); White Blood Cell (WBC) Count 6.5 thou/uL (4.8-10.8)
[2020-04-24 06:36] LABS: Anion Gap 10 mmol/L (10-20); BUN (Urea Nitrogen) 22 mg/dL (9.8-20.1); Calc. Creatinine Clearance 29 mL/min (70-130); Calcium 8.4 mg/dL (7.8-10.44); Carbon Dioxide 25 mmol/L (23-31); Chloride 107 mmol/L (98-107); Estimated GFR-MDRD 33; Glucose 103 mg/dL (83-110); Potassium 3.4 mmol/L (3.5-5.1); Sodium 139 mmol/L (136-145)
[2020-04-24] MEDS ORDERED: Fentanyl 100 MCG/2 ML VIAL ONE (07:00)
[2020-04-24] MEDS ORDERED: CEFAZOLIN 1 GM VIAL ONE (07:11)
[2020-04-24] MEDS ORDERED: Gentamicin 80 MG/2 ML VIAL ONE (07:11)
[2020-04-24] MEDS ORDERED: Iopamidol 370 76% 50 ML VIAL FS ONE (09:24)
[2020-04-24] MEDS ORDERED: Lidocaine 1% PF 5 ML VIAL ONE (10:15)
[2020-04-24] MEDS ORDERED: PROPOFOL 200 MG/20 ML VIAL ONE (10:15)
[2020-04-24] MEDS ORDERED: Acetaminophen/Codeine 30-300mg Tablet PO PRN ×2 (11:30)
--- NOTE | 2020-04-24 12:26 | RAD ---
SINGLE VIEW OF THE CHEST: COMPARISON: 04/19/2020. HISTORY: Pacemaker placement. FINDINGS: A single view of the chest shows an enlarged but stable cardiomediastinal silhouette. A pacemaker is seen with its leads in the right atrium and ventricle. No pneumothorax is seen. There is no eviden ce of consolidation, mass, or pleural effusion. IMPRESSION: Status post pacemaker placement without evidence of complication. POS: EAA
[2020-04-24] MEDS: Amlodipine 5 MG TAB PO SCH (13:31)
[2020-04-24] MEDS: Aspirin 81 mg Enteric Coated Tablet PO SCH (13:32)
[2020-04-24] MEDS: Famotidine 20 MG TAB PO SCH (13:32)
--- NOTE | 2020-04-24 14:38 | PDOC.HOSPP ---
- Subjective Encounter Date: 04/24/20 Encounter Time: 14:45 Subjective: Pt seen for followup re:a. fib with rvr. Feels well, no complaints. - Objective Vital Signs & Weight: Vital Signs (12 hours) Temp Pulse Resp BP BP BP Pulse Ox 04/24/20 13:31 110 H 180/86 H 04/24/20 11:05 97.2 F L 90 15 156/84 H 97 04/24/20 07:10 98.4 F 87 18 162/75 H 93 L 04/24/20 04:00 97.3 F L 86 16 145/73 H 96 Weight Admit Weight 153 lb 14.4 oz Weight 157 lb I&O: 04/23/20 04/24/20 04/25/20 06:59 06:59 06:59 Intake Total 660 1080 Output Total 900 2000 Balance -240 -920 Result Diagrams: 04/24/20 06:03 04/24/20 06:03 Additional Labs: Accuchecks 04/24/20 04/23/20 04/23/20 05:23 20:49 16:46 POC Glucose 109 170 H 149 H Labs and MARs reviewed by me EKG Reviewed by me: Yes (Tele: NSR) Hospitalist ROS - Review of Systems Cardiovascular: denies: chest pain, palpitations, orthopnea, paroxysmal noc. dyspnea, edema, light headedness Skin: denies: rash, lesions, essie, bruising - Medication Medications: Active Medications Generic Name Dose Route Start Last Admin Trade Name Freq PRN Reason Stop Dose Admin Acetaminophen 650 mg 04/19/20 17:18 04/24/20 05:15 Tylenol PO 650 mg Q4H PRN Administration Headache/Fever/Mild Pain (1-3) Amlodipine Besylate 5 mg 04/23/20 09:00 04/24/20 13:31 Norvasc PO 5 mg DAILY [facility] Administration Aspirin 81 mg 04/20/20 09:00 04/24/20 13:32 Ecotrin PO Not Given DAILY [facility] Atorvastatin Calcium 20 mg 04/19/20 21:00 04/23/20 21:09 Lipitor PO 20 mg HS [facility] Administration Cholecalciferol 2,000 units 04/20/20 09:00 04/24/20 13:32 Vitamin D3 PO 2,000 units DAILY [facility] Administration Famotidine 20 mg 04/22/20 09:00 04/24/20 13:32 Pepcid PO 20 mg DAILY [facility] Administration Hydralazine HCl 10 mg 04/22/20 11:44 04/22/20 15:40 Apresoline SLOW IVP 10 mg Q4H PRN Administration SBP GREATER THAN 160 Insulin Human Regular 0 units 04/19/20 17:25 04/22/20 18:41 Humulin R SC 2 unit .MILD SLIDING SCALE PRN Administration Mild Correctional Scale Levothyroxine Sodium 125 mcg 04/20/20 06:00 04/24/20 05:15 Synthroid PO 125 mcg 0600 [facility] Administration Metoprolol Succinate 75 mg 04/21/20 21:00 04/24/20 08:02 Toprol Xl PO Not Given BID [facility] - Exam General Appearance: awake alert Eye: anicteric sclera ENT: normocephalic atraumatic Neck: supple, symmetric Heart: RRR Respiratory: CTAB Gastrointestinal: soft, non-tender Musculoskeletal: no muscle wasting Psychiatric: normal affect, normal behavior Hosp A/P - Plan ASSESSMENT: 1. New onset atrial fibrillation/ tachy-troy syndrome 2. TIA on 04/21 - resolved 3. Hyperlipidemia. 4. History of falls. 5. 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 6. Moderate to severe aortic regurgitation. 7. Moderate tricuspid regurgitation. 8. Diabetes mellitus type 2.3. 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 Hypertension. 11. Hypothyroidism. PLAN: s/p PPM placement today Cont Aspirin and apixaban Cardiology and EP following Continue to monitor Creatinine improved to 1.51. Not on ACEI/ARB/Aldactone due to CKD Reasonable control of blood sugars.
[2020-04-24] MEDS: Cephalexin 250 MG CAP PO SCH (15:45)
--- NOTE | 2020-04-24 16:17 | PRG ---
DATE OF SERVICE: 04/24/2020 SUBJECTIVE: Ms. Guerrero is doing much better. She was seen ambulating in the halls with a walker. She recently underwent pacemaker placement and did well. She did have a paroxysmal atrial fibrillation. OBJECTIVE: VITAL SIGNS: Blood pressure , pulse 108, temperature 97.8. General: The patient is a pleasant woman, in no acute distress, appears stated age. Head, Eyes, Ears, Nose and Throat: Sclerae without icterus. Mouth: Moist mucous membranes, normal palate. Neck: No jugular venous distention. Carotid upstroke is brisk. No bruits bilaterally. Lungs: Clear to auscultation. Heart: Regular rate and rhythm, normal S1 and S2. Abdomen: Soft, nontender, nondistended. Extremities: No edema. Insert a new patient under. PERTINENT LABORATORY DATA: Hemoglobin 11.4, creatinine 1.5. IMPRESSION: 1. Paroxysmal atrial fibrillation. 2. ?TIA. 3. Sick sinus syndrome. RECOMMENDATIONS: Ms. Guerrero is doing well. Anticipate discharge in a.m. Troy has been continued by Dr. Bone. We will add Multaq given her LVEF of 45% and paroxysmal atrial fibrillation. If stable in a.m., okay for discharge. Plan is to follow up in office in 1 week. Job ID: [id number]
[2020-04-24] MEDS: Dronedarone HCl 400 MG TAB PO SCH (17:08)
[2020-04-24] MEDS: Atorvastatin Calcium 20 MG TAB PO SCH (21:03)
[2020-04-25] MEDS: Cephalexin 250 MG CAP PO SCH ×2 (01:14→09:04)
[2020-04-25 05:17] LABS: Hemoglobin 11.8 g/dL (12.0-16.0); Platelet Count 226 thou/uL (130-400)
[2020-04-25] MEDS: Levothyroxine Sodium 125 MCG TAB PO SCH (06:24)
[2020-04-25] MEDS ORDERED: Apixaban 2.5 MG TAB PO SCH (09:00)
[2020-04-25] MEDS: Amlodipine 5 MG TAB PO SCH (09:04)
[2020-04-25] MEDS: Dronedarone HCl 400 MG TAB PO SCH (09:04)
[2020-04-25] MEDS: Famotidine 20 MG TAB PO SCH (09:05)
[2020-04-25 11:25] VITALS: BP 142/81; TEMP 98
--- NOTE | 2020-04-25 11:42 | PDOC.CPN ---
- Subjective Date: 04/25/20 Time: 11:20 Interval history: No overnight events. No changes. - Review of Systems Respiratory: denies: cough, congestion, shortness of breath, exercise intolerance Cardiovascular: denies: chest pain, palpitation, edema, paroxysmal nocturnal dyspnea, orthopnea Gastrointestinal: denies: nausea, vomiting, diarrhea, constipation, abd pain, GI bleeding Musculoskeletal: denies: pain, tenderness, stiffness, swelling, arthritis/ arthralgias Neurological: denies: numbness, syncope, seizure, weakness - Objective Allergies/Adverse Reactions: Allergies Allergy/AdvReac Type Severity Reaction Status Date / Time No Known Allergies Allergy Verified 04/19/20 15:08 Visit Medications: Current Medications Acetaminophen (Tylenol) 650 mg PO Q4H PRN PRN Reason: Headache/Fever/Mild Pain (1-3) Last Admin: 04/24/20 05:15 Dose: 650 mg Acetaminophen/Codeine Phosphate (Tylenol #3) 1 tab PO Q4H PRN PRN Reason: Mild Pain (1-3) Last Admin: 04/25/20 09:05 Dose: 1 tab Acetaminophen/Codeine Phosphate (Tylenol #3) 2 tab PO Q4H PRN PRN Reason: Moderate Pain (4-6) Amlodipine Besylate (Norvasc) 5 mg PO DAILY [facility] Last Admin: 04/25/20 09:04 Dose: 5 mg Apixaban (Eliquis) 2.5 mg PO BID [facility] Last Admin: 04/25/20 09:04 Dose: 2.5 mg Atorvastatin Calcium (Lipitor) 20 mg PO HS [facility] Last Admin: 04/24/20 21:03 Dose: 20 mg Calcium Carbonate (Tums) 1,000 mg PO Q4H PRN PRN Reason: Heartburn or Indigestion Cephalexin (Keflex) 500 mg PO 0800,1600,2359 [facility] Last Admin: 04/25/20 09:04 Dose: 500 mg Cholecalciferol (Vitamin D3) 2,000 units PO DAILY [facility] Last Admin: 04/25/20 09:04 Dose: 2,000 units Dextrose/Water (Dextrose 50%) 25 gm SLOW IVP PRN PRN PRN Reason: Hypoglycemia Dronedarone (Multaq) 400 mg PO BID-[facility] Last Admin: 04/25/20 09:04 Dose: 400 mg Famotidine (Pepcid) 20 mg PO DAILY [facility] Last Admin: 04/25/20 09:05 Dose: 20 mg Glucagon (Glucagon) 1 mg IM PRN PRN PRN Reason: Hypoglycemia Hydralazine HCl (Apresoline) 10 mg SLOW IVP Q4H PRN PRN Reason: SBP GREATER THAN 160 Last Admin: 04/22/20 15:40 Dose: 10 mg Dextrose/Water (D5w) 1,000 mls @ 0 mls/hr IV .Q0M PRN PRN Reason: Hypoglycemia Insulin Human Regular (Humulin R) 0 units SC .MILD SLIDING SCALE PRN PRN Reason: Mild Correctional Scale Last Admin: 04/22/20 18:41 Dose: 2 unit Insulin Human Regular (Humulin R) 0 units SC .BEDTIME SLIDING SC PRN PRN Reason: Bedtime Correctional Scale Levothyroxine Sodium (Synthroid) 125 mcg PO 0600 [facility] Last Admin: 04/25/20 06:24 Dose: 125 mcg Metoprolol Succinate (Toprol Xl) 100 mg PO BID [facility] Last Admin: 04/25/20 09:05 Dose: 100 mg Metoprolol Tartrate (Lopressor) 5 mg IVP Q6H PRN PRN Reason: HR>130 Nitroglycerin (Nitrostat) 0.4 mg PO Q5MIN PRN PRN Reason: Chest Pain Sodium Chloride (Flush - Normal Saline) 10 ml IVF PRN PRN PRN Reason: Saline Flush Sodium Chloride (Flush - Normal Saline) 10 ml IVF PRN PRN PRN Reason: Saline Flush Vital Signs & Weight: Vital Signs Temp Pulse Resp BP BP Pulse Ox 04/25/20 11:23 98.0 F 107 H 16 142/81 H 95 04/25/20 09:05 92 04/25/20 09:04 92 04/25/20 07:06 97.7 F 92 16 153/84 H 96 04/25/20 03:51 97.7 F 96 18 157/87 H 97 04/24/20 23:59 97.9 F 110 H 18 149/84 H 97 Admit Weight 153 lb 14.4 oz Weight 157 lb - Physical Exam General: appears well, no apparent distress HEENT: mucus membranes moist Neck: supple neck Cardiac: other (IRR) Lungs: normal breath sounds Abdomen: soft Skin: clear Musculoskeletal: no pain - Labs Result Diagrams: 04/25/20 05:07 04/25/20 05:07 Troponin/CKMB CK-MB (CK-2) 2.1 ng/mL (0-6.6) 04/19/20 11:00 Troponin I 0.044 ng/mL (< 0.028) H 04/19/20 14:32 - Assessment/Plan Assessment/Plan: 1. AFlutter 2. TIA 3. HTN Multaq added yesterday and bblocker increased to 100mg BID. Will stop cardizem. Continue ACT.
[2020-04-25] MEDS ORDERED: Potassium Chloride 20 MEQ TAB PO SCH (12:45)
--- NOTE | 2020-04-26 00:04 | DIS ---
DATE OF ADMISSION: 04/19/2020 DATE OF DISCHARGE: 04/25/2020 PRIMARY CARE PROVIDER: Dr. Yosi Carballo. DISCHARGE DIAGNOSES: 1. Atrial fibrillation with rapid ventricular response. 2. Tachycardia bradycardia syndrome. 3. Transient ischemic attack. 4. [id number] aortic regurgitation. 5. Moderate tricuspid regurgitation. 6. [id number], stage 3 renal failure. 7. Hypokalemia. CONDITION OF PATIENT ON THE DAY OF DISCHARGE: Stable. I assessed Ms. Guerrero on the day of discharge. She denies any chest pain or shortness of breath. Vital signs are stable. S1 and S2 are heard, regular. Lungs are clear to auscultation bilaterally. CONSULTATIONS DURING THIS HOSPITALIZATION: 1. Cardiology, Dr. Rogers. 2. Neurology, Dr. Salomon. 3. Electrophysiology, Dr. Bone. HOSPITAL COURSE: Ms. Guerrero is a pleasant 89-year-old lady, who was admitted to [facility] on April 19, 2020 for new onset atrial fibrillation with rapid ventricular response. She was seen by Cardiology Service. Initial 2D echocardiogram showed left ventricular ejection fraction of 30% to 35%, may be underestimated secondary to tachycardia. She was initially treated with medications, but was found to have tachycardia bradycardia syndrome. She underwent permanent pacemaker placement. On April 21, she had an episode of altered mental status. TIA was suspected. MRI of the brain did not show any acute intracranial abnormality. Carotid Dopplers did not show any hemodynamically significant stenosis. There was slightly diminished antegrade flow seen within the left common carotid artery when compared to the right common carotid artery. Some of this may be related to variant anatomy; however, a moderately obstructing lesion involving the origin of the left common carotid artery cannot be entirely excluded according to radiologist. They recommended consideration for an MRA of the neck or possibly a CT angiogram of the neck for additional characterization. The patient continued to improve clinically. Followup 2D echocardiogram on April 22 showed left ventricular ejection fraction of 45% and E/A flow reversal suggestive of diastolic dysfunction. She has been cleared for discharge by the consultants. Her ARB was discontinued secondary to chronic kidney disease. Metoprolol succinate dose was increased to 100 mg 2 times daily. She has been started on apixaban 2.5 mg 2 times a day and aspirin has been discontinued. Many thanks for allowing me to participate in your patient's care. Please feel free to contact me with any questions or concerns. DISCHARGE DESTINATION: Home. TIME SPENT: Total amount of time spent coordinating this discharge: 20 minutes. On April 25, she had a creatinine of 1.35 and hemoglobin 11.8. She was ruled out for COVID-19 with PCR test during this hospitalization. DISCHARGE DESTINATION: Home with home health. ACTIVITY: As tolerated. DIET: Diabetic heart healthy and low-sodium. POSTACUTE CARE FOLLOWUP: With primary care provider in 3 days, with Cardiology Service in 10 days and with Electrophysiology Service in 2 weeks. Job ID: [id number]
== END 2020-04-25 13:46 | disposition home health service (06) | DRG 243 ==
LOC: ERS 10:42 → 2NO 13:51 → 2SE 04-21 11:51
PROVIDERS: ADMIT Internal Medicine; ATTEND Internal Medicine
PROC: 0JH606Z Insertion of Pacemaker, Dual Chamber into Chest Subcutaneous Tissue and Fascia, Open Approach (ICD-10-PCS; principal; 2020-04-24)
PROC: 02H63JZ Insertion of Pacemaker Lead into Right Atrium, Percutaneous Approach (ICD-10-PCS; 2020-04-24)
PROC: 02HK3JZ Insertion of Pacemaker Lead into Right Ventricle, Percutaneous Approach (ICD-10-PCS; 2020-04-24)
DX: I49.5 Sick sinus syndrome (principal); G45.9 Transient cerebral ischemic attack, unspecified; N17.9 Acute kidney failure, unspecified; I48.92 Unspecified atrial flutter; Z20.828 Contact with and (suspected) exposure to other viral communicable diseases; Z96.641 Presence of right artificial hip joint; I08.2 Rheumatic disorders of both aortic and tricuspid valves; N18.3 Chronic kidney disease, stage 3 (moderate); E87.6 Hypokalemia; I11.0 Hypertensive heart disease with heart failure; E11.22 Type 2 diabetes mellitus with diabetic chronic kidney disease; E03.9 Hypothyroidism, unspecified; M19.90 Unspecified osteoarthritis, unspecified site; I45.10 Unspecified right bundle-branch block; I42.9 Cardiomyopathy, unspecified; R47.81 Slurred speech; Z90.49 Acquired absence of other specified parts of digestive tract; Z79.84 Long term (current) use of oral hypoglycemic drugs; Z79.890 Hormone replacement therapy; Z79.82 Long term (current) use of aspirin; Z79.899 Other long term (current) drug therapy
CPT/HCPCS: 33208; 36415; 36416; 70450; 70551; 71045; 80048; 80053; 80061; 81003; 81015; 82550; 82553; 82565; 83735; 84443; 84484; 85014; 85018; 85025; 85049; 85610; 85730; 87635; 93005; 93010; 93306; 93880; 94760; 96365; 96372; 96376; C1785; C1898; J0282; J0360; J0690; J1580; J1650; J1815; J2001; J2704; J3010; J3490; J7070; Q9967; U0003

== ENCOUNTER 2021-07-07 13:58 | Outpatient (CLI) | payer MEDICARE, BC ==
[2021-07-07 15:35] LABS: #Eosinphils 0.2 10x3/uL (0.0-0.5); #Monocytes 0.7 10x3/uL (0.0-1.1); #Neutrophils 7.4 10x3/uL (1.5-8.4); %Basophils 0.4 % (0.0-2.0); %Eosinophils 2.1 % (0.0-6.0); %Lymphocytes 18.1 % (18.0-47.0); %Neutrophils 71.7 % (40.0-75.0); Hemoglobin 14.3 g/dL (12.0-15.5); Mean Corpuscular HGB CONC 32.4 g/dL (32.0-36.0); Mean Corpuscular Hemoglobin 31.6 pg (27.0-33.0); Mean Corpuscular Volume 97.6 fl (81.6-98.3); Mean Platelet Volume 9.6 fl (7.4-10.4); Platelet Count 276 10x3/uL (150-450); RBC Distribution Width 13.2 % (11.5-14.5); Red Blood Cell (RBC) Count 4.53 10x6/uL (3.90-5.03); White Blood Cell (WBC) Count 10.4 10x3/uL (3.5-10.5)
[2021-07-07 15:48] LABS: Anion Gap 15 mmol/L (10-20); BUN (Urea Nitrogen) 32 mg/dL (9.8-20.1); Calc. Creatinine Clearance 0 mL/min (70-130); Calcium 9.4 mg/dL (7.8-10.44); Carbon Dioxide 29 mmol/L (23-31); Chloride 102 mmol/L (98-107); Glucose 130 mg/dL (83-110); Sodium 141 mmol/L (136-145)
[2021-07-08 12:26] LABS: SARS-CoV-2 PCR by NAA Not Detected (NotDetected)
== END 2021-07-07 13:59 | disposition home or self-care (01) ==
LOC: LABBT 13:58
PROVIDERS: ATTEND Surgery
DX: Z01.812 Encounter for preprocedural laboratory examination (principal); K40.90 Unilateral inguinal hernia, without obstruction or gangrene, not specified as recurrent; Z20.822 Contact with and (suspected) exposure to COVID-19
CPT/HCPCS: 80048; 85025; U0003; U0005

== ENCOUNTER 2021-07-12 11:25 | Day surgery (SDC) | payer MEDICARE, BC ==
[2021-07-09 12:39] VITALS: BMI 25.0
[2021-07-12] MEDS ORDERED: Bupivacaine 0.25% HCL 30 ML VIAL ONE (13:12)
[2021-07-12] MEDS ORDERED: Lidocaine 1% w/Epinephrine 1:100K 20 ML VIAL ONE (13:12)
[2021-07-12] MEDS ORDERED: Bupivacaine PF 0.5% 30 ML VIAL ONE (13:32)
[2021-07-12] MEDS ORDERED: Fentanyl 100 MCG/2 ML VIAL ONE (13:39)
[2021-07-12] MEDS ORDERED: Phenylephrine 10 MG/ML VIAL ONE (13:40)
[2021-07-12] MEDS ORDERED: Lidocaine 1% PF 5 ML VIAL ONE (13:57)
[2021-07-12] MEDS ORDERED: Ondansetron PF 4 MG/2 ML Vial ONE (13:57)
[2021-07-12] MEDS ORDERED: Dexamethasone 20 MG/5 ML VIAL ONE (13:57)
[2021-07-12] MEDS ORDERED: PROPOFOL 200 MG/20 ML VIAL ONE (13:57)
== END 2021-07-12 17:00 | disposition home or self-care (01) ==
LOC: SDC 11:25
PROVIDERS: ATTEND Surgery
PROC: 0YU60JZ Supplement Left Inguinal Region with Synthetic Substitute, Open Approach (ICD-10-PCS; principal; 2021-07-12)
PROC: 0YU80JZ Supplement Left Femoral Region with Synthetic Substitute, Open Approach (ICD-10-PCS; 2021-07-12)
DX: K40.90 Unilateral inguinal hernia, without obstruction or gangrene, not specified as recurrent (principal); K41.90 Unilateral femoral hernia, without obstruction or gangrene, not specified as recurrent; Z79.01 Long term (current) use of anticoagulants; Z79.84 Long term (current) use of oral hypoglycemic drugs; Z79.899 Other long term (current) drug therapy; Z95.0 Presence of cardiac pacemaker
CPT/HCPCS: A4306; C1781; J0690; J1100; J2370; J2405; J2704; J3010; S0020

== ENCOUNTER 2021-10-10 04:17 | Inpatient (IN) | payer MEDICARE, BC ==
[2021-10-10 05:19] LABS: #Eosinphils 0.2 thou/uL (0.0-0.7); #Lymphocytes 1.2 thou/uL (1.20-3.40); #Monocytes 0.6 thou/uL (0.11-0.59); #Neutrophils 5.4 thou/uL (1.40-6.50); %Basophils 0.2 % (0.0-1.0); %Eosinophils 3.3 % (0.0-10.0); %Lymphocytes 16.2 % (21.0-51.0); %Monocytes 7.9 % (0.0-10.0); %Neutrophils 72.4 % (42.0-75.0); Mean Corpuscular HGB CONC 34.4 g/dL (32.0-36.0); Mean Corpuscular Hemoglobin 33.3 pg (27.0-31.0); Mean Corpuscular Volume 96.8 fL (78.0-98.0); Mean Platelet Volume 6.9 fL (7.4-10.4); Platelet Count 222 thou/uL (130-400); RBC Distribution Width 13.8 % (11.5-14.5); Red Blood Cell (RBC) Count 3.61 mill/uL (4.20-5.40); White Blood Cell (WBC) Count 7.4 thou/uL (4.8-10.8)
[2021-10-10 05:36] LABS: ALT (SGPT) 17 U/L (8-55); AST (SGOT) 17 U/L (5-34); Alkaline Phosphatase 70 U/L (40-110); Anion Gap 15 mmol/L (10-20); BUN (Urea Nitrogen) 31 mg/dL (9.8-20.1); Calc. Creatinine Clearance 0 mL/min (70-130); Calcium 8.8 mg/dL (7.8-10.44); Carbon Dioxide 27 mmol/L (23-31); Chloride 104 mmol/L (98-107); Globulin 2.5 g/dL (2.4-3.5); Glucose 109 mg/dL (83-110); Potassium 3.7 mmol/L (3.5-5.1); Protein, Total 6.5 g/dL (5.8-8.1); Sodium 142 mmol/L (136-145)
[2021-10-10 07:43] LABS: Bacteria/HPF None Seen HPF (None Seen); Bilirubin Negative (Negative); Blood, Urine Negative (Negative); Clarity Clear (Clear); Glucose, Urine (Dipstick) Normal (Negative); Ketone, Urine Negative (Negative); Leukocyte 75 Leu/uL (Negative); Nitrite Negative (Negative); Protein, Urine (Dipstick) Negative (Neg-Trace); RBC/HPF 0-3 HPF (0-3); Specific Gravity, Urine 1.008 (1.002-1.036); Squamous Epithelial 0-3 HPF (0-3); Urobilinogen Normal mg/dL (Less than 2); pH, Urine 6.5 (5.0-9.0)
[2021-10-10] MEDS ORDERED: Potassium Chloride 20 MEQ TAB PO SCH (08:00)
[2021-10-10 08:50] VITALS: BMI 24.9
[2021-10-10] MEDS ORDERED: Acetaminophen 325 MG TAB PO PRN (08:51)
[2021-10-10] MEDS ORDERED: Ondansetron PF 4 MG/2 ML Vial IVP PRN (09:23)
[2021-10-10] MEDS ORDERED: Ondansetron ODT 4 MG TAB PO PRN (09:23)
[2021-10-10] MEDS ORDERED: Furosemide 20 MG/2 ML VIAL SLOW IVP SCH (10:15)
[2021-10-10 15:55] LABS: SARS-CoV-2 PCR by NAA Not Detected (NotDetected)
[2021-10-10] MEDS: Rosuvastatin 10 MG TAB PO SCH (20:53)
[2021-10-10] MEDS: Apixaban 2.5 MG TAB PO SCH (20:53)
[2021-10-11 05:56] LABS: #Eosinphils 0.2 thou/uL (0.0-0.7); #Lymphocytes 1.4 thou/uL (1.20-3.40); #Monocytes 0.6 thou/uL (0.11-0.59); #Neutrophils 4.8 thou/uL (1.40-6.50); %Basophils 0.4 % (0.0-1.0); %Eosinophils 3.2 % (0.0-10.0); %Lymphocytes 19.6 % (21.0-51.0); %Monocytes 8.8 % (0.0-10.0); %Neutrophils 68.1 % (42.0-75.0); Hemoglobin 11.5 g/dL (12.0-16.0); Mean Corpuscular HGB CONC 34.4 g/dL (32.0-36.0); Mean Corpuscular Hemoglobin 33.6 pg (27.0-31.0); Mean Corpuscular Volume 97.8 fL (78.0-98.0); Mean Platelet Volume 6.9 fL (7.4-10.4); Platelet Count 200 thou/uL (130-400); RBC Distribution Width 13.6 % (11.5-14.5); Red Blood Cell (RBC) Count 3.43 mill/uL (4.20-5.40)
[2021-10-11] MEDS: Levothyroxine Sodium 125 MCG TAB PO SCH (06:20)
[2021-10-11 06:21] LABS: Anion Gap 11 mmol/L (10-20); BUN (Urea Nitrogen) 27 mg/dL (9.8-20.1); Calc. Creatinine Clearance 27 mL/min (70-130); Calcium 8.7 mg/dL (7.8-10.44); Carbon Dioxide 27 mmol/L (23-31); Chloride 106 mmol/L (98-107); Glucose 111 mg/dL (83-110); Potassium 3.8 mmol/L (3.5-5.1); Sodium 140 mmol/L (136-145)
[2021-10-11] MEDS: Dronedarone HCl 400 MG TAB PO SCH ×2 (08:12→17:34)
[2021-10-11] MEDS: Furosemide 20 MG TAB PO SCH (08:12)
[2021-10-11] MEDS: Apixaban 2.5 MG TAB PO SCH ×2 (08:22→20:58)
[2021-10-11] MEDS ORDERED: PROPOFOL 200 MG/20 ML VIAL ONE (11:51)
[2021-10-11] MEDS: Rosuvastatin 10 MG TAB PO SCH (20:58)
[2021-10-12 05:30] LABS: #Eosinphils 0.2 thou/uL (0.0-0.7); #Lymphocytes 1.3 thou/uL (1.20-3.40); #Monocytes 0.6 thou/uL (0.11-0.59); %Basophils 0.1 % (0.0-1.0); %Eosinophils 2.7 % (0.0-10.0); %Lymphocytes 17.7 % (21.0-51.0); %Monocytes 8.7 % (0.0-10.0); %Neutrophils 70.8 % (42.0-75.0); Hemoglobin 11.3 g/dL (12.0-16.0); Mean Corpuscular HGB CONC 33.9 g/dL (32.0-36.0); Mean Corpuscular Hemoglobin 33.1 pg (27.0-31.0); Mean Corpuscular Volume 97.8 fL (78.0-98.0); Mean Platelet Volume 6.9 fL (7.4-10.4); Platelet Count 210 thou/uL (130-400); RBC Distribution Width 13.8 % (11.5-14.5); Red Blood Cell (RBC) Count 3.43 mill/uL (4.20-5.40)
[2021-10-12 05:42] LABS: Anion Gap 13 mmol/L (10-20); BUN (Urea Nitrogen) 27 mg/dL (9.8-20.1); Calc. Creatinine Clearance 26 mL/min (70-130); Calcium 8.6 mg/dL (7.8-10.44); Carbon Dioxide 26 mmol/L (23-31); Chloride 105 mmol/L (98-107); Glucose 110 mg/dL (83-110); Potassium 3.9 mmol/L (3.5-5.1); Sodium 140 mmol/L (136-145)
[2021-10-12] MEDS: Levothyroxine Sodium 125 MCG TAB PO SCH (06:07)
[2021-10-12] MEDS: Furosemide 20 MG TAB PO SCH (08:08)
[2021-10-12] MEDS: Apixaban 2.5 MG TAB PO SCH (08:08)
[2021-10-12] MEDS: Dronedarone HCl 400 MG TAB PO SCH (08:08)
[2021-10-12] MEDS ORDERED: Furosemide 20 MG/2 ML VIAL IVP SCH (10:00)
[2021-10-12 12:23] VITALS: BP 108/55; TEMP 97.4
[2021-10-13] MEDS ORDERED: Losartan 25 MG TAB PO SCH (09:00)
== END 2021-10-12 15:50 | disposition home or self-care (01) | DRG 308 ==
LOC: ERS 04:17 → 2SW 06:04 → OBSVTOIN 10-11 13:28
PROVIDERS: ADMIT Internal Medicine; ATTEND Internal Medicine
PROC: 5A2204Z Restoration of Cardiac Rhythm, Single (ICD-10-PCS; principal; 2021-10-11)
DX: I48.0 Paroxysmal atrial fibrillation (principal); Z20.822 Contact with and (suspected) exposure to COVID-19; I50.23 Acute on chronic systolic (congestive) heart failure; I13.0 Hypertensive heart and chronic kidney disease with heart failure and stage 1 through stage 4 chronic kidney disease, or unspecified chronic kidney disease; I48.92 Unspecified atrial flutter; I42.9 Cardiomyopathy, unspecified; N18.30 Chronic kidney disease, stage 3 unspecified; E11.22 Type 2 diabetes mellitus with diabetic chronic kidney disease; E78.5 Hyperlipidemia, unspecified; I49.5 Sick sinus syndrome; Z96.641 Presence of right artificial hip joint; Z86.73 Personal history of transient ischemic attack (TIA), and cerebral infarction without residual deficits; Z95.0 Presence of cardiac pacemaker; Z79.899 Other long term (current) drug therapy; Z79.01 Long term (current) use of anticoagulants; Z79.890 Hormone replacement therapy; Z98.890 Other specified postprocedural states; Z90.49 Acquired absence of other specified parts of digestive tract
CPT/HCPCS: 36415; 71045; 80048; 80053; 81003; 81015; 83735; 83880; 84443; 84484; 85025; 92960; 93005; 93010; 93306; 96374; G0378; J1940; J2704; U0003; U0005